=== PATIENT | female | born 1970 | race Caucasian/White ===

== ENCOUNTER 2018-09-01 09:15 | Inpatient (IN) | payer BC ==
[2018-10-06] MEDS ORDERED: Lidocaine 1%/Sod Bicarbonate in NS 8.4% 1 ML Syringe IDERM PRN (00:01)
[2018-10-06] MEDS ORDERED: Lactated Ringers 1,000 ML IV SCH (00:01)
[2018-10-06] MEDS ORDERED: Sodium Chloride 0.9% 10 ML Syringe FLUSH PRN (00:01)
[2018-10-06] MEDS ORDERED: Pregabalin 25 MG Cap PO SCH (06:00)
[2018-10-06] MEDS ORDERED: Acetaminophen 325 MG Tab PO SCH (06:00)
[2018-10-06] MEDS ORDERED: oxyCODONE ER 10 MG TAB.ER PO SCH (06:00)
--- NOTE | 2018-10-06 08:42 | PCM.PREANE ---
Preanesthetic Assessment - Procedure Proposed Procedure: left hip replacement - Anesthesia/Transfusion/Family Hx Anesthesia History: Prior Anesthesia Reaction Other Type of Anesthesia Reaction Comment: "stiffness" Family History of Anesthesia Reaction: No Transfusion History: No Prior Transfusion(s) - Review of Systems General: No Symptoms Pulmonary: No Symptoms Cardiovascular: No Symptoms Gastrointestinal: No Symptoms Neurological: No Symptoms Other: Reports: Depression, Anxiety - Physical Assessment NPO Status Date: 10/05/18 NPO Status Time: 22:00 (sip withpills this am) Pulse: 72 O2 Sat by Pulse Oximetry: 97 Respiratory Rate: 16 Blood Pressure: 108/81 Temperature: 97.1 F Height: 5 ft 4 in Weight: 88 kg ASA Class: 2 Mental Status: Alert & Oriented x3 Airway Class: Mallampati = 1 Dentition: Reports: Normal Dentition Thyro-Mental Finger Breadths: 3 Mouth Opening Finger Breadths: 3 ROM/Head Extension: Full Lungs: Clear to Auscultation, Normal Respiratory Effort Cardiovascular: Regular Rate, Regular Rhythm - Lab Values: Laboratory Last Values MRSA (PCR) Negative 09/19/18 10:56 - Allergies Allergies/Adverse Reactions: Allergies Allergy/AdvReac Type Severity Reaction Status Date / Time cat dander Allergy Itching Verified 10/03/18 14:52 - Blood Blood Available: No - Acknowledgements Anesthesia Type Planned: Spinal Pt an Appropriate Candidate for the Planned Anesthesia: Yes Alternatives and Risks of Anesthesia Discussed w Pt/Guardian: Yes Pt/Guardian Understands and Agrees with Anesthesia Plan: Yes PreAnesthesia Questionnaire HEENT History: Reports: Allergic Rhinitis, Impaired Vision Cardiovascular History: Reports: Heart Murmur Respiratory History: Reports: None Gastrointestinal History: Reports: None Genitourinary History: Reports: Urinary Incontinence, Other (See Below) Other Genitourinary History: frequent urination, genintal herpes, cervix polyp 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: , 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 Musculoskeletal History: Reports: RA, Other (See Below) Other Musculoskeletal History: chronic left hip pain, myalgia, polyarthritis Neurological History: Reports: None Psychiatric History: Reports: Anxiety, Depression Endocrine/Metabolic History: Reports: Hypothyroidism, Obesity/BMI 30+, Other ( See Below) Other Endocrine/Metabolic History: goiter Hematologic History: Reports: Anemia Immunologic History: Reports: None Oncologic (Cancer) History: Reports: None Dermatologic History: Reports: Other (See Below) Other Dermatologic History: skin tags - Past Surgical History Head Surgeries/Procedures: Reports: None HEENT Surgical History: Reports: Oral Surgery Cardiovascular Surgical History: Reports: None Respiratory Surgical History: Reports: None GI Surgical History: Reports: Appendectomy Female Surgical History: Reports: Hysterectomy Neurological Surgical History: Reports: None Musculoskeletal Surgical History: Reports: None Oncologic Surgical History: Reports: None - SUBSTANCE USE Smoking Status *Q: Never Smoker Tobacco Use Within Last Twelve Months: No Second Hand Smoke Exposure: No Days Per Week of Alcohol Use: 1 (once a month) Recreational Drug Use History: No - HOME MEDS Home Medications: Home Meds Acetaminophen [Tylenol Extra Strength] 1,000 mg PO BID 10/03/18 [History] Cholecalciferol (Vitamin D3) [Vitamin D3] 5,000 unit PO DAILY 10/03/18 [History] Hydroxychloroquine [Plaquenil] 200 mg PO BID 10/03/18 [History] Meloxicam 15 mg PO DAILY 10/03/18 [History] Multivitamin [Zoo Chews] 1 tab PO DAILY 10/03/18 [History] Turmeric Root Extract [Turmeric Curcumin] 1,000 mg PO DAILY 10/03/18 [History] Venlafaxine HCl [Venlafaxine ER] 75 mg PO DAILY 10/03/18 [History] Zinc Gluconate [Zinc] 50 mg PO DAILY 10/03/18 [History] valACYclovir [Valtrex] 1 gm PO ASDIRECTED PRN 10/03/18 [History] - CURRENT (IN HOUSE) MEDS Current Meds: Current Medications Acetaminophen (Tylenol) 975 mg PO ONETIME GUS Stop: 10/06/18 14:00 Last Admin: 10/06/18 08:20 Dose: 975 mg Aspirin (Ecotrin) 325 mg PO BID GUS Bisacodyl (Dulcolax) 5 mg PO DAILY PRN PRN Reason: Constipation Morphine Sulfate 8 mg/Epinephrine HCl 0.3 mg/Cefuroxime Sodium 750 mg/Ketorolac Tromethamine 30 mg/Sodium Chloride 27.9 ml 0 mg .XX ONETIME ONE Stop: 10/06/18 11:21 Cyclobenzaprine HCl (Flexeril) 10 mg PO TID PRN PRN Reason: Spasms Docusate Sodium (Colace) 100 mg PO BID GUS Famotidine (Pepcid) 20 mg PO Q12H [facility] Lactated Ringer's (Ringers, Lactated) 1,000 mls @ 125 mls/hr IV ASDIRECTED [facility] Stop: 10/06/18 23:00 Cefazolin Sodium/Dextrose 2 gm (/ Premix) 50 mls @ 100 mls/hr IV Q8H [facility] Stop: 10/06/18 23:29 Ketorolac Tromethamine (Toradol) 15 mg IVPUSH Q6H PRN PRN Reason: Pain Lidocaine/Sodium Bicarbonate (Buffered Lidocaine 1% In Ns 8.4%) 0.25 ml IDERM ONETIME PRN PRN Reason: Prior to IV Start Stop: 10/06/18 18:00 Magnesium Hydroxide (Milk Of Magnesia) 30 ml PO BID PRN PRN Reason: Constipation Morphine Sulfate (Morphine) 2 mg IVPUSH Q2H PRN PRN Reason: Breakthrough Pain Naloxone HCl (Narcan) 0.1 mg IVPUSH Q5M PRN PRN Reason: Oversedation Ondansetron HCl (Zofran) 4 mg IVPUSH Q6H PRN PRN Reason: Nausea/Vomiting Oxycodone HCl (Oxycontin) 10 mg PO ONETIME [facility] Stop: 10/06/18 14:00 Last Admin: 10/06/18 08:19 Dose: 10 mg Oxycodone/Acetaminophen (Percocet 325-5 Mg) 1 - 2 tab PO Q4H PRN PRN Reason: Pain Pregabalin (Lyrica) 50 mg PO ONETIME [facility] Stop: 10/06/18 14:00 Last Admin: 10/06/18 08:19 Dose: 50 mg Senna (Senna) 8.6 mg PO BID PRN PRN Reason: Constipation Sodium Chloride (Saline Flush) 10 ml FLUSH ASDIRECTED PRN PRN Reason: Keep Vein Open Stop: 10/06/18 18:00
[2018-10-06] MEDS ORDERED: Propofol 200 MG/20 ML SDV ONE (08:56)
[2018-10-06] MEDS ORDERED: fentaNYL 100 MCG/2 ML SDV ONE (08:57)
[2018-10-06] MEDS ORDERED: Midazolam 1 MG/ML 2 ML SDV ONE (08:57)
[2018-10-06] MEDS ORDERED: Lactated Ringers 1,000 ML ONE ×2 (08:59→11:38)
[2018-10-06] MEDS ORDERED: Morphine PF 10 MG/10 ML SDV ONE (09:02)
[2018-10-06] MEDS ORDERED: ceFAZolin 1 GM Vial ONE (10:20)
[2018-10-06] MEDS ORDERED: ePHEDrine/Normal Saline 25 MG/5 ML Syringe ONE (10:48)
[2018-10-06] MEDS ORDERED: fentaNYL 100 MCG/2 ML SDV IVPUSH PRN (10:59)
[2018-10-06] MEDS ORDERED: Meperidine 50 MG/ML Vial IVPUSH PRN (10:59)
[2018-10-06] MEDS ORDERED: Ondansetron 4 MG/2 ML SDV IVPUSH PRN (10:59)
[2018-10-06] MEDS ORDERED: diphenhydrAMINE 50 MG/ML SDV IVPUSH PRN (10:59)
[2018-10-06] MEDS: Iodine/Sodium Iodide 2% Tincture 30 ML Bottle ONE ×2 (11:42→11:49)
[2018-10-06] MEDS: ceFAZolin 1 GM Vial ONE ×2 (11:43→11:51)
[2018-10-06] MEDS: Vancomycin 1 GM SDV ONE ×2 (11:44→11:58)
[2018-10-06] MEDS: Morphine 8 MG, EPINEPHrine 0.3 MG, Cefuroxime 750 MG, Ketorolac 30 MG, Sodium Chloride ... ONE ×10 (11:44→11:56)
[2018-10-06] MEDS: Bupivacaine 0.25% 30 ML SDV ONE ×2 (11:44→11:57)
--- NOTE | 2018-10-06 12:36 | PCM.POSTAN ---
POST ANESTHESIA ASSESSMENT - MENTAL STATUS Mental Status: Alert, Oriented - VITAL SIGNS Pulse Rate: 75 SaO2: 100 Resp Rate: 8 Blood Pressure: 99/61 Temperature: 98.4 F - RESPIRATORY Respiratory Status: Respiratory Rate WNL, Airway Patent, O2 Saturation Stable, Supplemental Oxygen - CARDIOVASCULAR CV Status: Pulse Rate WNL, Blood Pressure Stable - GASTROINTESTINAL GI Status: No Symptoms - PAIN Pain Score: 0 - POST OP HYDRATION Hydration Status: Adequate & Stable
[2018-10-06] MEDS ORDERED: Morphine 2 MG/ML Syringe IVPUSH PRN (13:00)
[2018-10-06] MEDS ORDERED: Cyclobenzaprine 10 MG Tab PO PRN (13:00)
[2018-10-06] MEDS ORDERED: Magnesium Hydroxide 400 MG/5 ML Susp 30 ML Cup PO PRN (13:00)
[2018-10-06] MEDS ORDERED: Sennosides 8.6 MG Tab PO PRN (13:00)
[2018-10-06] MEDS ORDERED: Bisacodyl 5 MG Tab PO PRN (13:00)
[2018-10-06] MEDS ORDERED: Naloxone 0.4 MG/ML SDV IVPUSH PRN (13:00)
[2018-10-06] MEDS: Acetaminophen/oxyCODONE 325-5 MG Tab PO PRN ×3 (13:34→23:03)
--- NOTE | 2018-10-06 13:42 | CR ---
Pelvis and left hip: AP view of pelvis is obtained as well as lateral view of the left hip. Comparison: Prior MRI left hip arthrogram study of 02/25/17 Left hip prosthesis is seen. Components are aligned. Underlying bony structures are intact. Severe degenerative joint space narrowing is seen within the right hip. Disc space narrowing is noted within the lower lumbar spine. No subluxation or fracture is seen. Impression: 1. Satisfactory appearance of recently placed left hip prosthesis. 2. Other degenerative change as noted above. Diagnostic code #3
[2018-10-06] MEDS ORDERED: valACYclovir 1,000 MG Tab PO PRN (14:04)
[2018-10-06] MEDS ORDERED: Scopolamine 1.5 MG Transdermal Patch TRDERM PRN (14:44)
[2018-10-06] MEDS: ceFAZolin 2 GM in Premix Bag 1 BAG IV SCH (18:09)
--- NOTE | 2018-10-06 18:56 | PCM.CONS ---
H&P History of Present Illness - General Date of Service: 10/06/18 Admit Problem/Dx: Admission Diagnosis/Problem Admission Diagnosis/Problem Osteoarthritis of hip Source of Information: Patient, Provider History Limitations: Reports: No Limitations - History of Present Illness Initial Comments - Free Text/Narative: Beatriz is a 48 yo female patient of Dr. Sparks who is post-operative day 0 of L SITA. Hospital medicine was consulted for post-operative medical care. At this time she is stable. Pain is controlled. She is having some nausea and vomiting. Antiemetics have been given with relief. She denies any chest pain, shortness of breath, or palpitations. She carries a history of: Anxiety, Depression, Herpes, Obesity, OA, RA, TAY, h/o murmur, hypothyroidism, PCOS, Anemia. She has never smoked. She is a full code. Her PCP is YOLANDA Davies. Left Hip Pain Score (Numeric/FACES): 7 - Related Data Allergies/Adverse Reactions: Allergies Allergy/AdvReac Type Severity Reaction Status Date / Time cat dander Allergy Itching Verified 10/06/18 14:03 Home Medications: Home Meds Cholecalciferol (Vitamin D3) [Vitamin D3] 5,000 unit PO DAILY 10/03/18 [History] Hydroxychloroquine [Plaquenil] 200 mg PO BID 10/03/18 [History] Meloxicam 15 mg PO DAILY 10/03/18 [History] Multivitamin [Zoo Chews] 1 tab PO DAILY 10/03/18 [History] Venlafaxine HCl [Venlafaxine ER] 75 mg PO DAILY 10/03/18 [History] valACYclovir [Valtrex] 1 gm PO ASDIRECTED PRN 10/03/18 [History] Acetaminophen [Tylenol Extra Strength] 1,000 mg PO BID PRN #1 10/06/18 [Rx] Acetaminophen/oxyCODONE [Percocet 325-5 MG] 1 - 2 tab PO Q6H PRN #60 tablet [Rx] Bisacodyl [Dulcolax] 5 mg PO DAILY PRN tablet 10/06/18 [Rx] Cyclobenzaprine [Flexeril] 10 mg PO TID PRN #40 tablet 10/06/18 [Rx] Docusate Sodium [Colace] 100 mg PO BID cap 10/06/18 [Rx] Famotidine [Pepcid] 20 mg PO Q12H tablet 10/06/18 [Rx] Magnesium Hydroxide [Milk of Magnesia] 30 ml PO BID PRN cup 10/06/18 [Rx] Rivaroxaban [Xarelto] 10 mg PO DAILY #40 10/06/18 [Rx] Scopolamine [Transderm-Scop] 1.5 mg TRDERM Q72H PRN patch 10/06/18 [Rx] Sennosides [Senna] 8.6 mg PO BID PRN tablet 10/06/18 [Rx] Past Medical History HEENT History: Reports: Allergic Rhinitis, Impaired Vision Cardiovascular History: Reports: Heart Murmur Respiratory History: Reports: None Gastrointestinal History: Reports: None Genitourinary History: Reports: Urinary Incontinence, Other (See Below) Other Genitourinary History: frequent urination, genintal herpes, cervix polyp 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: , 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 Musculoskeletal History: Reports: RA, Other (See Below) Other Musculoskeletal History: chronic left hip pain, fibromyalgia, polyarthritis Neurological History: Reports: None Psychiatric History: Reports: Anxiety, Depression Endocrine/Metabolic History: Reports: Hypothyroidism, Obesity/BMI 30+, Other ( See Below) Other Endocrine/Metabolic History: goiter Hematologic History: Reports: Anemia Immunologic History: Reports: None Oncologic (Cancer) History: Reports: None Dermatologic History: Reports: Other (See Below) Other Dermatologic History: skin tags - Infectious Disease History Other Infectious Disease History: hx of encephalitis and [place], genital herpes - Past Surgical History Head Surgeries/Procedures: Reports: None HEENT Surgical History: Reports: Oral Surgery Cardiovascular Surgical History: Reports: None Respiratory Surgical History: Reports: None Other Respiratory Surgeries/Procedures: hx of obstructive sleep apnea GI Surgical History: Reports: Appendectomy Female Surgical History: Reports: Hysterectomy Other Endocrine Surgeries/Procedures: patient denies obesity and hyrothyroid Neurological Surgical History: Reports: None Musculoskeletal Surgical History: Reports: None Oncologic Surgical History: Reports: None Social & Family History - Tobacco Use Smoking Status *Q: Never Smoker Second Hand Smoke Exposure: No - Caffeine Use Caffeine Use: Reports: Coffee, Energy Drinks - Alcohol Use Days Per Week of Alcohol Use: 1 (once a month) - Recreational Drug Use Recreational Drug Use: No H&P Review of Systems - Review of Systems: Review Of Systems: See Below General: Reports: No Symptoms. Denies: Fever, Chills HEENT: Reports: No Symptoms Pulmonary: Reports: No Symptoms. Denies: Shortness of Breath, Cough Cardiovascular: Reports: No Symptoms. Denies: Chest Pain, Blood Pressure Problem Gastrointestinal: Reports: Nausea, Vomiting. Denies: Abdominal Pain, Diarrhea Genitourinary: Reports: No Symptoms Musculoskeletal: Reports: No Symptoms Skin: Reports: No Symptoms Psychiatric: Reports: No Symptoms Neurological: Reports: No Symptoms Hematologic/Lymphatic: Reports: No Symptoms Immunologic: Reports: No Symptoms Exam - Exam Exam: See Below - Vital Signs Vital Signs: Last Vital Signs Temp 97.9 F 10/06/18 17:29 Pulse 73 10/06/18 17:29 Resp 18 10/06/18 17:29 BP 115/66 10/06/18 17:29 Pulse Ox 100 10/06/18 17:29 Weight: 193 lb 14.4 oz - Exam Quality Assessment: Supplemental Oxygen (2L NC), DVT Prophylaxis General: Alert, Oriented, Cooperative, Mild Distress HEENT: Conjunctiva Clear, EACs Clear, EOMI, Hearing Intact, Mucosa Moist & [place] , Nares Patent, Normal Nasal Septum, Posterior Pharynx Clear, PERRLA Neck: Supple, Trachea Midline, 2 Lungs: Clear to Auscultation, Normal Respiratory Effort Cardiovascular: Regular Rate, Regular Rhythm GI/Abdominal Exam: Normal Bowel Sounds, Soft, Non-Tender, No Organomegaly, No Distention, No Abnormal Bruit, No Mass, Pelvis Stable (Female) Exam: Deferred Rectal (Female) Exam: Deferred Back Exam: Normal Inspection Extremities: Normal Inspection, Non-Tender, No Pedal Edema, Normal Capillary Refill, Limited Range of Motion (s/p L SITA) Peripheral Pulses: 2+: Posterior Tibial (L), Posterior Tibial (R), Dorsalis Pedis (L), Dorsalis Pedis (R) Skin: Warm, Dry, Intact, Other (bandage dry and intact) Neurological: Cranial Nerves Intact (grossly) Psychiatric: Alert, Normal Affect, Normal Mood - Patient Data Lab Results Last 24 hrs: Laboratory Results - last 24 hr 10/06/18 Range/Units 08:30 Blood Type A POSITIVE Gel Antibody Screen Negative Consult PN Assessment/Plan POD#: 0 Procedures: Procedures ANTINUCLEAR ANTIBODIES (10/11/16) ASSAY OF PREALBUMIN (09/23/18) ASSAY THYROID STIM HORMONE (10/18/17) C-REACTIVE PROTEIN (10/10/16) CCP ANTIBODY (10/11/16) COMPLETE CBC AUTOMATED (09/23/18) COMPREHEN METABOLIC PANEL (09/23/18) CULTURE SCREEN ONLY (12/13/15) DRAIN/INJ JOINT/BURSA W/O US (07/25/18) LIPID PANEL (10/18/17) MEDICAL NUTRITION INDIV IN (03/20/17) MRI JNT OF LWR EXTRE W/O DYE (02/25/17) PROTHROMBIN TIME (09/23/18) RBC SED RATE AUTOMATED (10/10/16) RHEUMATOID FACTOR TEST QUAL (10/11/16) ROUTINE VENIPUNCTURE (09/23/18) STREP A AG IA (12/13/15) THROMBOPLASTIN TIME PARTIAL (09/23/18) ULTRASOUND BREAST LIMITED (10/30/16) URINALYSIS AUTO W/O SCOPE (10/18/17) X-RAY EXAM CHEST 2 VIEWS (09/23/18) X-RAY EXAM HIP UNI 2-3 VIEWS (12/13/15) X-RAY EXAM L-S SPINE 2/3 VWS (12/13/15) X-RAY EXAM SACRUM TAILBONE (12/13/15) (1) S/P total hip arthroplasty SNOMED Code(s): 262882811673, 292136339237 Code(s): Z96.649 - PRESENCE OF UNSPECIFIED ARTIFICIAL HIP JOINT Priority: High Current Visit: Yes Qualifiers: Laterality: left Qualified Code(s): Z96.642 - Presence of left artificial hip joint Problem List Initiated/Reviewed/Updated: Yes Plan: I/P: Acute: S/P left total hip arthroplasty - post-operative day 0 -DVT prophylaxis and pain management per primary care team -PT/OT -IS/RT -Monitor oxygen saturation -Titrate oxygen as needed -Vital signs stable -Monitor labs -Hgb 13.8 -GFR >60 Osteoarthritis of hip -Pain management per primary care team Chronic: Anxiety Depression Herpes Obesity OA RA TAY h/o murmur hypothyroidism PCOS Anemia Plan: CM for discharge planning GI prophylaxis: Pepcid DVT/PE prophylaxis: Xaralto, MARÍA ELENA hose, SCDs Home medications as indicated Other orders as listed above Routine AM labs She is a full code. Thank you for allowing us to participate in the care of this patient!
[2018-10-06] MEDS: Ondansetron 4 MG/2 ML SDV IVPUSH PRN (19:05)
[2018-10-06] MEDS ORDERED: Venlafaxine 75 MG Cap.ER PO SCH (21:00)
[2018-10-06] MEDS ORDERED: Hydroxychloroquine 200 MG Tab PO SCH (21:00)
[2018-10-06] MEDS: Docusate Sodium 100 MG Cap PO SCH (21:14)
[2018-10-06] MEDS: Famotidine 20 MG Tab PO SCH (21:14)
--- NOTE | 2018-10-06 21:48 | PCM.OPNOTE ---
- General Post-Op/Procedure Note Date of Surgery/Procedure: 10/06/18 Operative Procedure(s): left total hip arthroplasty Pre Op Diagnosis: left hip osteoarthrosis Post-Op Diagnosis: Same Anesthesia Technique: Local, MAC, Spinal Primary Surgeon: Ye Sparks Anesthesia Provider: Maria Dolores Crane Federal Mediation Commissioner: Lyn Hogan Federal Mediation Commissioner: Bertha Navarro EBL in mLs: 400 Complications: None Condition: Good Free Text/Narrative:: Intake & Output 10/06/18 10/06/18 10/06/18 06:59 14:59 22:59 Intake Total 540 600 Output Total 450 250 Balance 90 350 size 52 cup size 2 stem size 42/28 mdm -2.7 components
[2018-10-06] MEDS: Ketorolac 15 MG/ML SDV IVPUSH PRN (23:05)
[2018-10-07] MEDS: ceFAZolin 2 GM in Premix Bag 1 BAG IV SCH ×2 (03:39→10:37)
[2018-10-07] MEDS: Ondansetron 4 MG/2 ML SDV IVPUSH PRN ×2 (04:27→10:37)
[2018-10-07] MEDS: Ketorolac 15 MG/ML SDV IVPUSH PRN (06:17)
[2018-10-07] MEDS: Acetaminophen/oxyCODONE 325-5 MG Tab PO PRN ×2 (06:18→12:57)
--- NOTE | 2018-10-07 06:21 | PCM.CONSN ---
- General Info Date of Service: 10/07/18 Admission Dx/Problem (Free Text): Admission Diagnosis/Problem Admission Diagnosis/Problem Osteoarthritis of hip Functional Status: Reports: Pain Controlled, Tolerating Diet, Ambulating, Urinating, Incentive Spirometry. Denies: New Symptoms - Review of Systems General: Reports: No Symptoms. Denies: Fever, Weakness, Fatigue, Malaise, Chills HEENT: Reports: No Symptoms. Denies: Headaches, Sore Throat Pulmonary: Reports: No Symptoms. Denies: Shortness of Breath, Pleuritic Chest Pain, Cough, Sputum, Wheezing Cardiovascular: Reports: No Symptoms. Denies: Chest Pain, Palpitations, Dyspnea on Exertion, Edema, Lightheadedness Gastrointestinal: Reports: No Symptoms. Denies: Abdominal Pain, Constipation, Diarrhea, Nausea, Vomiting Genitourinary: Reports: No Symptoms. Denies: Pain Musculoskeletal: Reports: Leg Pain Skin: Reports: No Symptoms. Denies: Cyanosis Neurological: Reports: No Symptoms. Denies: Confusion, Headache, Seizure, Trouble Speaking, Weakness, Change in Speech Psychiatric: Reports: No Symptoms - Patient Data Vitals - Most Recent: Last Vital Signs Temp 98.2 F 10/07/18 03:29 Pulse 74 10/07/18 03:29 Resp 16 10/07/18 03:29 BP 102/78 10/07/18 03:29 Pulse Ox 99 10/07/18 03:29 Weight - Most Recent: 197 lb 6.4 oz I&O - Last 24 Hours: Intake & Output 10/06/18 10/06/18 10/07/18 14:59 22:59 06:59 Intake Total 540 600 950 Output Total 584 699 8975 Balance 90 350 -750 Lab Results Last 24 Hours: Laboratory Results - last 24 hr 10/06/18 Range/Units 08:30 Blood Type A POSITIVE Gel Antibody Screen Negative Med Orders - Current: Current Medications Bisacodyl (Dulcolax) 5 mg PO DAILY PRN PRN Reason: Constipation Cholecalciferol (Vitamin D3) 5,000 unit PO DAILY [facility] Cyclobenzaprine HCl (Flexeril) 10 mg PO TID PRN PRN Reason: Spasms Docusate Sodium (Colace) 100 mg PO BID [facility] Last Admin: 10/06/18 21:14 Dose: 100 mg Famotidine (Pepcid) 20 mg PO Q12H [facility] Last Admin: 10/06/18 21:14 Dose: 20 mg Cefazolin Sodium/Dextrose 2 gm (/ Premix) 50 mls @ 100 mls/hr IV Q8H [facility] Stop: 10/07/18 11:29 Last Admin: 10/07/18 03:39 Dose: 100 mls/hr Ketorolac Tromethamine (Toradol) 15 mg IVPUSH Q6H PRN PRN Reason: Pain Last Admin: 10/07/18 06:17 Dose: 15 mg Magnesium Hydroxide (Milk Of Magnesia) 30 ml PO BID PRN PRN Reason: Constipation Morphine Sulfate (Morphine) 2 mg IVPUSH Q2H PRN PRN Reason: Breakthrough Pain Multivitamins (Thera) 1 each PO DAILY [facility] Naloxone HCl (Narcan) 0.1 mg IVPUSH Q5M PRN PRN Reason: Oversedation Ondansetron HCl (Zofran) 4 mg IVPUSH Q6H PRN PRN Reason: Nausea/Vomiting Last Admin: 10/07/18 04:27 Dose: 4 mg Oxycodone/Acetaminophen (Percocet 325-5 Mg) 1 - 2 tab PO Q4H PRN PRN Reason: Pain Last Admin: 10/07/18 06:18 Dose: 2 tab Rivaroxaban (Xarelto) 10 mg PO DAILY [facility] Scopolamine (Transderm-Scop) 1.5 mg TRDERM Q72H PRN PRN Reason: Nausea Last Admin: 10/06/18 15:04 Dose: 1.5 mg Senna (Senna) 8.6 mg PO BID PRN PRN Reason: Constipation Venlafaxine HCl (Effexor Xr) 75 mg PO BEDTIME [facility] Last Admin: 10/06/18 21:13 Dose: 75 mg Discontinued Medications Acetaminophen (Tylenol) 975 mg PO ONETIME [facility] Stop: 10/06/18 14:00 Last Admin: 10/06/18 08:20 Dose: 975 mg Aspirin (Ecotrin) 325 mg PO BID [facility] Bupivacaine HCl (Marcaine 0.25%) Confirm Administered Dose 30 ml .ROUTE .STK- MED ONE Stop: 10/06/18 10:21 Last Admin: 10/06/18 11:57 Dose: 30 ml Cefazolin Sodium (Ancef) Confirm Administered Dose 2 gm .ROUTE .STK-MED ONE Stop: 10/06/18 08:59 Last Admin: 10/06/18 11:51 Dose: 2 gm Cefazolin Sodium (Ancef) Confirm Administered Dose 2 gm .ROUTE .STK-MED ONE Stop: 10/06/18 10:21 Morphine Sulfate 8 mg/Epinephrine HCl 0.3 mg/Cefuroxime Sodium 750 mg/Ketorolac Tromethamine 30 mg/Sodium Chloride 27.9 ml 0 mg .XX ONETIME ONE Stop: 10/06/18 11:21 Last Admin: 10/06/18 11:56 Dose: 788.3 mg Diphenhydramine HCl (Benadryl) 25 mg IVPUSH Q6H PRN PRN Reason: pruritis Stop: 10/06/18 15:00 Ephedrine Sulfate (Ephedrine In Ns) Confirm Administered Dose 25 mg .ROUTE .STK- MED ONE Stop: 10/06/18 10:49 Fentanyl (Sublimaze) Confirm Administered Dose 100 mcg .ROUTE .STK-MED ONE Stop: 10/06/18 08:58 Fentanyl (Sublimaze) 50 mcg IVPUSH Q5M PRN PRN Reason: Pain Stop: 10/06/18 14:00 Hydroxychloroquine Sulfate (Plaquenil) 200 mg PO BID [facility] Lactated Ringer's (Ringers, Lactated) 1,000 mls @ 125 mls/hr IV ASDIRECTED [facility] Stop: 10/06/18 23:00 Last Admin: 10/06/18 08:30 Dose: 125 mls/hr Lactated Ringer's (Ringers, Lactated) Confirm Administered Dose 1,000 mls @ as directed .ROUTE .STK-MED ONE Stop: 10/06/18 09:00 Lactated Ringer's (Ringers, Lactated) Confirm Administered Dose 1,000 mls @ as directed .ROUTE .STK-MED ONE Stop: 10/06/18 11:39 Iodine (Iodine 2% Mild Tincture) Confirm Administered Dose 30 ml .ROUTE .STK- MED ONE Stop: 10/06/18 10:21 Last Admin: 10/06/18 11:49 Dose: 18 ml Lidocaine/Sodium Bicarbonate (Buffered Lidocaine 1% In Ns 8.4%) 0.25 ml IDERM ONETIME PRN PRN Reason: Prior to IV Start Stop: 10/06/18 18:00 Last Admin: 10/06/18 08:30 Dose: 0.25 ml Meperidine HCl (Meperidine) 12.5 mg IVPUSH ONETIME PRN PRN Reason: Shivering Stop: 10/06/18 14:00 Midazolam HCl (Versed 1 Mg/Ml) Confirm Administered Dose 2 mg .ROUTE .STK-MED ONE Stop: 10/06/18 08:58 Morphine Sulfate (Duramorph Pf) Confirm Administered Dose 10 mg .ROUTE .STK-MED ONE Stop: 10/06/18 09:03 Ondansetron HCl (Zofran) 4 mg IVPUSH ONETIME PRN PRN Reason: Nausea/Vomiting Stop: 10/06/18 16:00 Oxycodone HCl (Oxycontin) 10 mg PO ONETIME [facility] Stop: 10/06/18 14:00 Last Admin: 10/06/18 08:19 Dose: 10 mg Pregabalin (Lyrica) 50 mg PO ONETIME [facility] Stop: 10/06/18 14:00 Last Admin: 10/06/18 08:19 Dose: 50 mg Propofol (Diprivan 20 Ml) Confirm Administered Dose 600 mg .ROUTE .STK-MED ONE Stop: 10/06/18 08:57 Sodium Chloride (Saline Flush) 10 ml FLUSH ASDIRECTED PRN PRN Reason: Keep Vein Open Stop: 10/06/18 18:00 Tranexamic Acid (Cyklokapron) Confirm Administered Dose 1,000 mg .ROUTE .STK- MED ONE Stop: 10/06/18 10:20 Last Admin: 10/06/18 11:58 Dose: 1,000 mg Valacyclovir HCl (Valtrex) 1,000 mg PO ASDIRECTED PRN PRN Reason: as directed Vancomycin HCl (Vancomycin) Confirm Administered Dose 1 gm .ROUTE .STK-MED ONE Stop: 10/06/18 10:21 Last Admin: 10/06/18 11:58 Dose: 1 gm - Exam Quality Assessment: DVT Prophylaxis General: Alert, Oriented, Cooperative, No Acute Distress HEENT: Pupils Equal, Pupils Reactive, EOMI, Mucous Membr. Moist/[place] Neck: Supple, Trachea Midline, No JVD Lungs: Clear to Auscultation, Normal Respiratory Effort Cardiovascular: Regular Rate, Regular Rhythm GI/Abdominal Exam: Normal Bowel Sounds, Soft, Non-Tender, No Distention, No Abnormal Bruit (Female) Exam: Deferred Back Exam: Normal Inspection, Full Range of Motion Extremities: No Pedal Edema, Normal Capillary Refill, Leg Pain, Limited Range of Motion, Other (Bandage in place on left leg. Cooling pack in place ) Peripheral Pulses: 2+: Radial (L), Radial (R), Dorsalis Pedis (L), Dorsalis Pedis (R) Skin: Warm, Dry, Intact Wound/Incisions: Dressing Dry and Intact, No Drainage Neurological: No New Focal Deficit Psy/Mental Status: Alert, Normal Affect, Normal Mood Consult PN Assessment/Plan POD#: 1 Procedures: Procedures ANTINUCLEAR ANTIBODIES (10/11/16) ASSAY OF PREALBUMIN (09/23/18) ASSAY THYROID STIM HORMONE (10/18/17) C-REACTIVE PROTEIN (10/10/16) CCP ANTIBODY (10/11/16) COMPLETE CBC AUTOMATED (09/23/18) COMPREHEN METABOLIC PANEL (09/23/18) CULTURE SCREEN ONLY (12/13/15) DRAIN/INJ JOINT/BURSA W/O US (07/25/18) LIPID PANEL (10/18/17) MEDICAL NUTRITION INDIV IN (03/20/17) MRI JNT OF LWR EXTRE W/O DYE (02/25/17) PROTHROMBIN TIME (09/23/18) RBC SED RATE AUTOMATED (10/10/16) RHEUMATOID FACTOR TEST QUAL (10/11/16) ROUTINE VENIPUNCTURE (09/23/18) STREP A AG IA (12/13/15) THROMBOPLASTIN TIME PARTIAL (09/23/18) ULTRASOUND BREAST LIMITED (10/30/16) URINALYSIS AUTO W/O SCOPE (10/18/17) X-RAY EXAM CHEST 2 VIEWS (09/23/18) X-RAY EXAM HIP UNI 2-3 VIEWS (12/13/15) X-RAY EXAM L-S SPINE 2/3 VWS (12/13/15) X-RAY EXAM SACRUM TAILBONE (12/13/15) (1) S/P total hip arthroplasty SNOMED Code(s): 816709430016, 918549050261 Code(s): Z96.649 - PRESENCE OF UNSPECIFIED ARTIFICIAL HIP JOINT Priority: High Current Visit: Yes Qualifiers: Laterality: left Qualified Code(s): Z96.642 - Presence of left artificial hip joint Problem List Initiated/Reviewed/Updated: Yes My Orders Last 24 Hours: My Active Orders 10/06/18 14:44 Scopolamine [Transderm-Scop] 1.5 mg TRDERM Q72H PRN Plan: I/P: Acute: S/P left total hip arthroplasty - post-operative day 1 -DVT prophylaxis and pain management per primary care team -PT/OT -IS/RT -Monitor oxygen saturation -Titrate oxygen as needed -Vital signs stable -Monitor labs -Hgb 13.8; Now10.4 -GFR >60; Now >60 Osteoarthritis of hip -Pain management per primary care team Post-operative hypotension -BP 84/50 -Symptomatic with dizziness, weakness, difficulty ambulating -500mL fluid bolus given -BP 101/58 -Symptoms responded to fluid challenge and she is doing well -Encouraged hydration at discharge Chronic: Anxiety Depression Herpes Obesity OA RA TAY h/o murmur hypothyroidism PCOS Anemia Plan: CM for discharge planning GI prophylaxis: Pepcid DVT/PE prophylaxis: MARÍA ELENA Pinon, SCDs Home medications as indicated Other orders as listed above Routine AM labs She is a full code. Overall from a hospitalist standpoint Beatriz is doing well. Nursing reported symptomatic hypotension this morning she was given a 500 mL fluid bolus with excellent results. Oral hydration was encouraged. She does state that she normally runs with a systolic pressure in the low 100s to upper 90s. She has since been working with PT and OT without any difficulty. She has urinated and is off oxygen. She has no concerns. No nursing concerns. Pain is controlled. She will be cleared for discharge pending primary team and PT/OT agreement. Thank you for allowing us to participate in the care of this patient!
--- NOTE | 2018-10-07 08:13 | PCM.SURGPN ---
- General Info Date of Service: 10/07/18 POD#: 1 Functional Status: Reports: Pain Controlled, Tolerating Diet, Ambulating, Urinating, Incentive Spirometry, Other (The pt states her pain is controlled.) - Patient Data Vitals - Most Recent: Last Vital Signs Temp 98.2 F 10/07/18 03:29 Pulse 74 10/07/18 03:29 Resp 16 10/07/18 03:29 BP 102/78 10/07/18 03:29 Pulse Ox 99 10/07/18 03:29 Weight - Most Recent: 197 lb 6.4 oz I&O - Last 24 Hours: Intake & Output 10/06/18 10/07/18 10/07/18 22:59 06:59 14:59 Intake Total 600 950 Output Total 250 1700 Balance 350 -750 Lab Results Last 24 Hrs: Laboratory Results - last 24 hr 10/06/18 10/07/18 10/07/18 Range/Units 08:30 06:30 06:30 WBC 7.56 (3.98-10.04) K/mm3 RBC 3.46 L (3.98-5.22) M/mm3 Hgb 10.4 L (11.2-15.7) gm/L Hct 32.2 L (34.1-44.9) % MCV 93.1 (79.4-94.8) fl MCH 30.1 (25.6-32.2) pg MCHC 32.3 (32.2-35.5) g/dl RDW Std Deviation 40.1 (36.4-46.3) fL Plt Count 218 (182-369) K/mm3 MPV 8.9 L (9.4-12.3) fl Sodium 138 (136-145) mEq/L Potassium 4.1 (3.5-5.1) mEq/L Chloride 102 (98-107) mEq/L Carbon Dioxide 30 (21-32) mEq/L Anion Gap 10.1 (5-15) BUN 17 (7-18) mg/dL Creatinine 0.7 (0.55-1.02) mg/dL Est Cr Clr Drug Dosing 86.72 mL/min Estimated GFR (MDRD) > 60 (>60) mL/min BUN/Creatinine Ratio 24.3 H (14-18) Glucose 96 (74-106) mg/dL Calcium 8.2 L (8.5-10.1) mg/dL Total Bilirubin 0.4 (0.2-1.0) mg/dL AST 31 (15-37) U/L ALT 27 (14-59) U/L Alkaline Phosphatase 51 (46-116) U/L Total Protein 6.1 L (6.4-8.2) g/dl Albumin 2.9 L (3.4-5.0) g/dl Globulin 3.2 gm/dL Albumin/Globulin Ratio 0.9 L (1-2) Blood Type A POSITIVE Gel Antibody Screen Negative Med Orders - Current: Current Medications Bisacodyl (Dulcolax) 5 mg PO DAILY PRN PRN Reason: Constipation Cholecalciferol (Vitamin D3) 5,000 unit PO DAILY [facility] Cyclobenzaprine HCl (Flexeril) 10 mg PO TID PRN PRN Reason: Spasms Docusate Sodium (Colace) 100 mg PO BID [facility] Last Admin: 10/06/18 21:14 Dose: 100 mg Famotidine (Pepcid) 20 mg PO Q12H [facility] Last Admin: 10/06/18 21:14 Dose: 20 mg Cefazolin Sodium/Dextrose 2 gm (/ Premix) 50 mls @ 100 mls/hr IV Q8H [facility] Stop: 10/07/18 11:29 Last Admin: 10/07/18 03:39 Dose: 100 mls/hr Ketorolac Tromethamine (Toradol) 15 mg IVPUSH Q6H PRN PRN Reason: Pain Last Admin: 10/07/18 06:17 Dose: 15 mg Magnesium Hydroxide (Milk Of Magnesia) 30 ml PO BID PRN PRN Reason: Constipation Morphine Sulfate (Morphine) 2 mg IVPUSH Q2H PRN PRN Reason: Breakthrough Pain Multivitamins (Thera) 1 each PO DAILY [facility] Naloxone HCl (Narcan) 0.1 mg IVPUSH Q5M PRN PRN Reason: Oversedation Ondansetron HCl (Zofran) 4 mg IVPUSH Q6H PRN PRN Reason: Nausea/Vomiting Last Admin: 10/07/18 04:27 Dose: 4 mg Oxycodone/Acetaminophen (Percocet 325-5 Mg) 1 - 2 tab PO Q4H PRN PRN Reason: Pain Last Admin: 10/07/18 06:18 Dose: 2 tab Rivaroxaban (Xarelto) 10 mg PO DAILY [facility] Scopolamine (Transderm-Scop) 1.5 mg TRDERM Q72H PRN PRN Reason: Nausea Last Admin: 10/06/18 15:04 Dose: 1.5 mg Senna (Senna) 8.6 mg PO BID PRN PRN Reason: Constipation Venlafaxine HCl (Effexor Xr) 75 mg PO BEDTIME [facility] Last Admin: 10/06/18 21:13 Dose: 75 mg Discontinued Medications Acetaminophen (Tylenol) 975 mg PO ONETIME [facility] Stop: 10/06/18 14:00 Last Admin: 10/06/18 08:20 Dose: 975 mg Aspirin (Ecotrin) 325 mg PO BID [facility] Bupivacaine HCl (Marcaine 0.25%) Confirm Administered Dose 30 ml .ROUTE .STK- MED ONE Stop: 10/06/18 10:21 Last Admin: 10/06/18 11:57 Dose: 30 ml Cefazolin Sodium (Ancef) Confirm Administered Dose 2 gm .ROUTE .STK-MED ONE Stop: 10/06/18 08:59 Last Admin: 10/06/18 11:51 Dose: 2 gm Cefazolin Sodium (Ancef) Confirm Administered Dose 2 gm .ROUTE .STK-MED ONE Stop: 10/06/18 10:21 Morphine Sulfate 8 mg/Epinephrine HCl 0.3 mg/Cefuroxime Sodium 750 mg/Ketorolac Tromethamine 30 mg/Sodium Chloride 27.9 ml 0 mg .XX ONETIME ONE Stop: 10/06/18 11:21 Last Admin: 10/06/18 11:56 Dose: 788.3 mg Diphenhydramine HCl (Benadryl) 25 mg IVPUSH Q6H PRN PRN Reason: pruritis Stop: 10/06/18 15:00 Ephedrine Sulfate (Ephedrine In Ns) Confirm Administered Dose 25 mg .ROUTE .STK- MED ONE Stop: 10/06/18 10:49 Fentanyl (Sublimaze) Confirm Administered Dose 100 mcg .ROUTE .STK-MED ONE Stop: 10/06/18 08:58 Fentanyl (Sublimaze) 50 mcg IVPUSH Q5M PRN PRN Reason: Pain Stop: 10/06/18 14:00 Hydroxychloroquine Sulfate (Plaquenil) 200 mg PO BID [facility] Lactated Ringer's (Ringers, Lactated) 1,000 mls @ 125 mls/hr IV ASDIRECTED [facility] Stop: 10/06/18 23:00 Last Admin: 10/06/18 08:30 Dose: 125 mls/hr Lactated Ringer's (Ringers, Lactated) Confirm Administered Dose 1,000 mls @ as directed .ROUTE .STK-MED ONE Stop: 10/06/18 09:00 Lactated Ringer's (Ringers, Lactated) Confirm Administered Dose 1,000 mls @ as directed .ROUTE .STK-MED ONE Stop: 10/06/18 11:39 Iodine (Iodine 2% Mild Tincture) Confirm Administered Dose 30 ml .ROUTE .ST- MED ONE Stop: 10/06/18 10:21 Last Admin: 10/06/18 11:49 Dose: 18 ml Lidocaine/Sodium Bicarbonate (Buffered Lidocaine 1% In Ns 8.4%) 0.25 ml IDERM ONETIME PRN PRN Reason: Prior to IV Start Stop: 10/06/18 18:00 Last Admin: 10/06/18 08:30 Dose: 0.25 ml Meperidine HCl (Meperidine) 12.5 mg IVPUSH ONETIME PRN PRN Reason: Shivering Stop: 10/06/18 14:00 Midazolam HCl (Versed 1 Mg/Ml) Confirm Administered Dose 2 mg .ROUTE .STK-MED ONE Stop: 10/06/18 08:58 Morphine Sulfate (Duramorph Pf) Confirm Administered Dose 10 mg .ROUTE .ST-MED ONE Stop: 10/06/18 09:03 Ondansetron HCl (Zofran) 4 mg IVPUSH ONETIME PRN PRN Reason: Nausea/Vomiting Stop: 10/06/18 16:00 Oxycodone HCl (Oxycontin) 10 mg PO ONETIME [facility] Stop: 10/06/18 14:00 Last Admin: 10/06/18 08:19 Dose: 10 mg Pregabalin (Lyrica) 50 mg PO ONETIME [facility] Stop: 10/06/18 14:00 Last Admin: 10/06/18 08:19 Dose: 50 mg Propofol (Diprivan 20 Ml) Confirm Administered Dose 600 mg .ROUTE .STK-MED ONE Stop: 10/06/18 08:57 Sodium Chloride (Saline Flush) 10 ml FLUSH ASDIRECTED PRN PRN Reason: Keep Vein Open Stop: 10/06/18 18:00 Tranexamic Acid (Cyklokapron) Confirm Administered Dose 1,000 mg .ROUTE .STK- MED ONE Stop: 10/06/18 10:20 Last Admin: 10/06/18 11:58 Dose: 1,000 mg Valacyclovir HCl (Valtrex) 1,000 mg PO ASDIRECTED PRN PRN Reason: as directed Vancomycin HCl (Vancomycin) Confirm Administered Dose 1 gm .ROUTE .STK-MED ONE Stop: 10/06/18 10:21 Last Admin: 10/06/18 11:58 Dose: 1 gm - Exam Wound/Incisions: Dressing Dry and Intact General: Alert, Cooperative, No Acute Distress Lungs: Normal Respiratory Effort Extremities: Other (NVS intact for BLE. Coy's negative. Left thigh soft.) - Problem List Review Problem List Initiated/Reviewed/Updated: Yes - My Orders Last 24 Hours: Active Orders 24 hr Category Date Time Status Communication Order [RC] BID Care 10/06/18 10:59 Active Cooling Warming Measures [RC] ASDIRECTED Care 10/06/18 10:59 Inactive Notify Provider [RC] ASDIRECTED Care 10/06/18 10:59 Active Ready for Discharge [RC] PER UNIT ROUTINE Care 10/07/18 08:09 Active Vital Signs [RC] Q15M Care 10/06/18 10:59 Inactive Vital Signs [RC] Q1H Care 10/06/18 10:59 Inactive Regular Diet [DIET] Diet 10/06/18 Lunch Active Acetaminophen/oxyCODONE [Percocet 325-5 MG] Med 10/06/18 13:00 Active 1 - 2 tab PO Q4H PRN Bisacodyl [Dulcolax] Med 10/06/18 13:00 Active 5 mg PO DAILY PRN Cholecalciferol (Vitamin D3) [Vitamin D3] Med 10/07/18 09:00 Active 5,000 unit PO DAILY Cyclobenzaprine [Flexeril] Med 10/06/18 13:00 Active 10 mg PO TID PRN Docusate Sodium [Colace] Med 10/06/18 21:00 Active 100 mg PO BID Famotidine [Pepcid] Med 10/06/18 21:00 Active 20 mg PO Q12H Ketorolac [Toradol] Med 10/06/18 13:00 Active 15 mg IVPUSH Q6H PRN Magnesium Hydroxide [Milk of Magnesia] Med 10/06/18 13:00 Active 30 ml PO BID PRN Morphine Med 10/06/18 13:00 Active 2 mg IVPUSH Q2H PRN Multivitamins,Therapeutic [Thera] Med 10/07/18 09:00 Active 1 each PO DAILY Naloxone [Narcan] Med 10/06/18 13:00 Active 0.1 mg IVPUSH Q5M PRN Ondansetron [Zofran] Med 10/06/18 13:00 Active 4 mg IVPUSH Q6H PRN Rivaroxaban [Xarelto] Med 10/07/18 09:00 Active 10 mg PO DAILY Scopolamine [Transderm-Scop] Med 10/06/18 14:44 Active 1.5 mg TRDERM Q72H PRN Sennosides [Senna] Med 10/06/18 13:00 Active 8.6 mg PO BID PRN Venlafaxine [Effexor XR] Med 10/06/18 21:00 Active 75 mg PO BEDTIME ceFAZolin [Ancef] 2 gm Med 10/06/18 19:00 Active Premix Bag 1 bag IV Q8H Pulse Oximetry Continuous Monitoring [OM.PC] Routine Oth 10/06/18 10:59 Active Medication Orders Bisacodyl (Dulcolax) 5 mg PO DAILY PRN PRN Reason: Constipation Cholecalciferol (Vitamin D3) 5,000 unit PO DAILY [facility] Cyclobenzaprine HCl (Flexeril) 10 mg PO TID PRN PRN Reason: Spasms Docusate Sodium (Colace) 100 mg PO BID [facility] Last Admin: 10/06/18 21:14 Dose: 100 mg Famotidine (Pepcid) 20 mg PO Q12H [facility] Last Admin: 10/06/18 21:14 Dose: 20 mg Cefazolin Sodium/Dextrose 2 gm (/ Premix) 50 mls @ 100 mls/hr IV Q8H [facility] Stop: 10/07/18 11:29 Last Admin: 10/07/18 03:39 Dose: 100 mls/hr Infusion: 10/06/18 18:39 Dose: 100 mls/hr Admin: 10/06/18 18:09 Dose: 100 mls/hr Ketorolac Tromethamine (Toradol) 15 mg IVPUSH Q6H PRN PRN Reason: Pain Last Admin: 10/07/18 06:17 Dose: 15 mg Admin: 10/06/18 23:05 Dose: 15 mg Magnesium Hydroxide (Milk Of Magnesia) 30 ml PO BID PRN PRN Reason: Constipation Morphine Sulfate (Morphine) 2 mg IVPUSH Q2H PRN PRN Reason: Breakthrough Pain Multivitamins (Thera) 1 each PO DAILY [facility] Naloxone HCl (Narcan) 0.1 mg IVPUSH Q5M PRN PRN Reason: Oversedation Ondansetron HCl (Zofran) 4 mg IVPUSH Q6H PRN PRN Reason: Nausea/Vomiting Last Admin: 10/07/18 04:27 Dose: 4 mg Admin: 10/06/18 19:05 Dose: 4 mg Oxycodone/Acetaminophen (Percocet 325-5 Mg) 1 - 2 tab PO Q4H PRN PRN Reason: Pain Last Admin: 10/07/18 06:18 Dose: 2 tab Admin: 10/06/18 23:03 Dose: 2 tab Admin: 10/06/18 18:08 Dose: 2 tab Admin: 10/06/18 13:34 Dose: 1 tab Rivaroxaban (Xarelto) 10 mg PO DAILY [facility] Scopolamine (Transderm-Scop) 1.5 mg TRDERM Q72H PRN PRN Reason: Nausea Last Admin: 10/06/18 15:04 Dose: 1.5 mg Senna (Senna) 8.6 mg PO BID PRN PRN Reason: Constipation Venlafaxine HCl (Effexor Xr) 75 mg PO BEDTIME [facility] Last Admin: 10/06/18 21:13 Dose: 75 mg - Assessment Assessment (Free Text/Narrative):: POD#1 - s/p left SITA - Plan Plan (Free Text/Narrative):: 1. Hgb 10.4. 2. Xarelto 10mg PO daily, frequent mobility, TEDs. 3. SITA precautions. 4. Discharge to home today. The pt's case was discussed with Dr. Sparks.
--- NOTE | 2018-10-07 08:22 | PCM.DCSUM1 ---
Discharge Summary - Hospital Course Brief History: Beatriz Keys" is a 48 yo female who underwent left SITA with Dr. Sparks on 10-06-2018. The procedure was completed under spinal anesthesia with sedation. The pt tolerated the procedure well and was admitted to the Medical- Surgical Unit. Medical management was provided by the Hospitalist service. The pt's Hospital course was uneventful. The pt's Hgb on POD#1 was 10.4. On POD#1, Xarelto 10mg PO daily was initiated for VTE prophylaxis. SCDs and TEDs were also ordered. A Mepilex dressing was placed at the incision site at the time of surgery and remained clean and dry. The pt participated in P.T. and O.T. and progressed well. She followed the SITA precautions. The pt was allowed to WBAT. On POD#1, the pt was deemed appropriate to discharge to home with her . - Discharge Data Discharge Date: 10/07/18 Discharge Disposition: Home, Self-Care 01 Condition: Good - Patient Summary/Data Operative Procedure(s) Performed: left total hip arthroplasty Consults: Consultations 10/06/18 06:51 Consult to Physician [CONS] Routine OT Evaluation and Treatment [CONS] Routine PT Evaluation and Treatment [CONS] Routine - Patient Instructions Diet: Usual Diet as Tolerated Activity: Apply Ice, As Tolerated, Elevate Extremity, Full Weight Bearing Activity, Other: Follow the total hip precautions. Driving: Do Not Drive Showering/Bathing: May Shower Wound/Incision Care: Keep Operative Site/Wound Site Clean and Dry, Do NOT Change Dressing Notify Provider of: Fever, Increased Pain, Swelling and Redness, Drainage, Nausea and/or Vomiting Other/Special Instructions: Please get up and moving around EVERY HOUR while awake. This helps to prevent blood clots. Please use your walker and have help with mobility as needed. Take a short walk in your home EVERY HOUR while awake. Please take the Xarelto blood thinner medication daily as directed. If possible, please HOLD your use of Mobic or meloxicam while you are using the Xarelto. If your rheuamtoid arthritis pain is severe and you feel you need to resume use of the meloxicam, please contact the Clinic to discuss this. At home , please complete the exercises that you learned during the Hospital stay. Schedule for physical therapy. Use the pain medication as needed. The medication may cause drowsiness and constipation. Contact your primary care provider for instructions if you are constipated. You may use a stool softener like docusate sodium or Colace 100mg twice daily and/or a laxative like Miralax daily for constipation. Increase your water and fiber intake while you are using the pain medication. Discontinue use of the pain medication as soon as able. Please do not use other medications that may cause drowsiness (other pain medications, anxiety pills, cold medications, sleeping pills, etc) while using the prescription pain medication. Do not use alcohol while using the pain medication. Wear the [place] hose during the day and you may remove these at night. Elevate the limb to decrease swelling. Place ice to the area often. Place a towel between your skin and the blue pad. Use the incentive spirometer often. Take deep breaths throughout the day. Please keep the dressing in place until follow-up. Notify the Clinic if the dressing becomes saturated. Increase your protein intake while you are healing. If you have diabetes, please closely monitor your blood sugars and notify your primary care provider with abnormal values. Elevated blood sugars increases the risk of infection. Call the Clinic with questions or concerns - [phone]. - Discharge Plan *PRESCRIPTION DRUG MONITORING PROGRAM REVIEWED*: No *COPY OF PRESCRIPTION DRUG MONITORING REPORT IN PATIENT ELENA: No Prescriptions/Med Rec: Acetaminophen/oxyCODONE [Percocet 325-5 MG] 1 - 2 tab PO Q6H PRN #60 tablet PRN Reason: Pain Cyclobenzaprine [Flexeril] 10 mg PO TID PRN #40 tablet PRN Reason: Spasms Rivaroxaban [Xarelto] 10 mg PO DAILY #40 Home Medications: Home Meds Cholecalciferol (Vitamin D3) [Vitamin D3] 5,000 unit PO DAILY 10/03/18 [History] Hydroxychloroquine [Plaquenil] 200 mg PO BID 10/03/18 [History] Meloxicam 15 mg PO DAILY 10/03/18 [History] Multivitamin [Zoo Chews] 1 tab PO DAILY 10/03/18 [History] Venlafaxine HCl [Venlafaxine ER] 75 mg PO DAILY 10/03/18 [History] valACYclovir [Valtrex] 1 gm PO ASDIRECTED PRN 10/03/18 [History] Acetaminophen [Tylenol Extra Strength] 1,000 mg PO BID PRN #1 10/06/18 [Rx] Acetaminophen/oxyCODONE [Percocet 325-5 MG] 1 - 2 tab PO Q6H PRN #60 tablet [Rx] Bisacodyl [Dulcolax] 5 mg PO DAILY PRN tablet 10/06/18 [Rx] Cyclobenzaprine [Flexeril] 10 mg PO TID PRN #40 tablet 10/06/18 [Rx] Docusate Sodium [Colace] 100 mg PO BID cap 10/06/18 [Rx] Famotidine [Pepcid] 20 mg PO Q12H tablet 10/06/18 [Rx] Magnesium Hydroxide [Milk of Magnesia] 30 ml PO BID PRN cup 10/06/18 [Rx] Rivaroxaban [Xarelto] 10 mg PO DAILY #40 10/06/18 [Rx] Scopolamine [Transderm-Scop] 1.5 mg TRDERM Q72H PRN patch 10/06/18 [Rx] Sennosides [Senna] 8.6 mg PO BID PRN tablet 10/06/18 [Rx] Referrals: Lyn Hogan PA-C [Physician Allergy Nurse] - (1. Follow-up with Lyn Hogan PA-C on Sunday, October 14, 2018 at 10:45am. 2. Follow-up with Lyn Hogan PA-C on Sunday, October 21, 2018 at 10:45am.) - Discharge Summary/Plan Comment DC Time >30 min.: No - Patient Data Vitals - Most Recent: Last Vital Signs Temp 98.2 F 10/07/18 03:29 Pulse 74 10/07/18 03:29 Resp 16 10/07/18 03:29 BP 102/78 10/07/18 03:29 Pulse Ox 99 10/07/18 03:29 Weight - Most Recent: 197 lb 6.4 oz I&O - Last 24 hours: Intake & Output 10/06/18 10/07/18 10/07/18 22:59 06:59 14:59 Intake Total 600 950 Output Total 250 1700 Balance 350 -750 Lab Results - Last 24 hrs: Laboratory Results - last 24 hr 01/21/19 01/22/19 01/22/19 Range/Units 08:30 06:30 06:30 WBC 7.56 (3.98-10.04) K/mm3 RBC 3.46 L (3.98-5.22) M/mm3 Hgb 10.4 L (11.2-15.7) gm/L Hct 32.2 L (34.1-44.9) % MCV 93.1 (79.4-94.8) fl MCH 30.1 (25.6-32.2) pg MCHC 32.3 (32.2-35.5) g/dl RDW Std Deviation 40.1 (36.4-46.3) fL Plt Count 218 (182-369) K/mm3 MPV 8.9 L (9.4-12.3) fl Sodium 138 (136-145) mEq/L Potassium 4.1 (3.5-5.1) mEq/L Chloride 102 (98-107) mEq/L Carbon Dioxide 30 (21-32) mEq/L Anion Gap 10.1 (5-15) BUN 17 (7-18) mg/dL Creatinine 0.7 (0.55-1.02) mg/dL Est Cr Clr Drug Dosing 86.72 mL/min Estimated GFR (MDRD) > 60 (>60) mL/min BUN/Creatinine Ratio 24.3 H (14-18) Glucose 96 (74-106) mg/dL Calcium 8.2 L (8.5-10.1) mg/dL Total Bilirubin 0.4 (0.2-1.0) mg/dL AST 31 (15-37) U/L ALT 27 (14-59) U/L Alkaline Phosphatase 51 (46-116) U/L Total Protein 6.1 L (6.4-8.2) g/dl Albumin 2.9 L (3.4-5.0) g/dl Globulin 3.2 gm/dL Albumin/Globulin Ratio 0.9 L (1-2) Blood Type A POSITIVE Gel Antibody Screen Negative Med Orders - Current: Current Medications Bisacodyl (Dulcolax) 5 mg PO DAILY PRN PRN Reason: Constipation Cholecalciferol (Vitamin D3) 5,000 unit PO DAILY [facility] Cyclobenzaprine HCl (Flexeril) 10 mg PO TID PRN PRN Reason: Spasms Docusate Sodium (Colace) 100 mg PO BID [facility] Last Admin: 10/06/18 21:14 Dose: 100 mg Famotidine (Pepcid) 20 mg PO Q12H [facility] Last Admin: 10/06/18 21:14 Dose: 20 mg Cefazolin Sodium/Dextrose 2 gm (/ Premix) 50 mls @ 100 mls/hr IV Q8H [facility] Stop: 10/07/18 11:29 Last Admin: 10/07/18 03:39 Dose: 100 mls/hr Ketorolac Tromethamine (Toradol) 15 mg IVPUSH Q6H PRN PRN Reason: Pain Last Admin: 10/07/18 06:17 Dose: 15 mg Magnesium Hydroxide (Milk Of Magnesia) 30 ml PO BID PRN PRN Reason: Constipation Morphine Sulfate (Morphine) 2 mg IVPUSH Q2H PRN PRN Reason: Breakthrough Pain Multivitamins (Thera) 1 each PO DAILY [facility] Naloxone HCl (Narcan) 0.1 mg IVPUSH Q5M PRN PRN Reason: Oversedation Ondansetron HCl (Zofran) 4 mg IVPUSH Q6H PRN PRN Reason: Nausea/Vomiting Last Admin: 10/07/18 04:27 Dose: 4 mg Oxycodone/Acetaminophen (Percocet 325-5 Mg) 1 - 2 tab PO Q4H PRN PRN Reason: Pain Last Admin: 10/07/18 06:18 Dose: 2 tab Rivaroxaban (Xarelto) 10 mg PO DAILY [facility] Scopolamine (Transderm-Scop) 1.5 mg TRDERM Q72H PRN PRN Reason: Nausea Last Admin: 10/06/18 15:04 Dose: 1.5 mg Senna (Senna) 8.6 mg PO BID PRN PRN Reason: Constipation Venlafaxine HCl (Effexor Xr) 75 mg PO BEDTIME [facility] Last Admin: 10/06/18 21:13 Dose: 75 mg Discontinued Medications Acetaminophen (Tylenol) 975 mg PO ONETIME [facility] Stop: 10/06/18 14:00 Last Admin: 10/06/18 08:20 Dose: 975 mg Aspirin (Ecotrin) 325 mg PO BID [facility] Bupivacaine HCl (Marcaine 0.25%) Confirm Administered Dose 30 ml .ROUTE .STK- MED ONE Stop: 10/06/18 10:21 Last Admin: 10/06/18 11:57 Dose: 30 ml Cefazolin Sodium (Ancef) Confirm Administered Dose 2 gm .ROUTE .STK-MED ONE Stop: 10/06/18 08:59 Last Admin: 10/06/18 11:51 Dose: 2 gm Cefazolin Sodium (Ancef) Confirm Administered Dose 2 gm .ROUTE .STK-MED ONE Stop: 10/06/18 10:21 Morphine Sulfate 8 mg/Epinephrine HCl 0.3 mg/Cefuroxime Sodium 750 mg/Ketorolac Tromethamine 30 mg/Sodium Chloride 27.9 ml 0 mg .XX ONETIME ONE Stop: 10/06/18 11:21 Last Admin: 10/06/18 11:56 Dose: 788.3 mg Diphenhydramine HCl (Benadryl) 25 mg IVPUSH Q6H PRN PRN Reason: pruritis Stop: 10/06/18 15:00 Ephedrine Sulfate (Ephedrine In Ns) Confirm Administered Dose 25 mg .ROUTE .ST- MED ONE Stop: 10/06/18 10:49 Fentanyl (Sublimaze) Confirm Administered Dose 100 mcg .ROUTE .STK-MED ONE Stop: 10/06/18 08:58 Fentanyl (Sublimaze) 50 mcg IVPUSH Q5M PRN PRN Reason: Pain Stop: 10/06/18 14:00 Hydroxychloroquine Sulfate (Plaquenil) 200 mg PO BID [facility] Lactated Ringer's (Ringers, Lactated) 1,000 mls @ 125 mls/hr IV ASDIRECTED [facility] Stop: 10/06/18 23:00 Last Admin: 10/06/18 08:30 Dose: 125 mls/hr Lactated Ringer's (Ringers, Lactated) Confirm Administered Dose 1,000 mls @ as directed .ROUTE .STK-MED ONE Stop: 10/06/18 09:00 Lactated Ringer's (Ringers, Lactated) Confirm Administered Dose 1,000 mls @ as directed .ROUTE .STK-MED ONE Stop: 10/06/18 11:39 Iodine (Iodine 2% Mild Tincture) Confirm Administered Dose 30 ml .ROUTE .STK- MED ONE Stop: 10/06/18 10:21 Last Admin: 10/06/18 11:49 Dose: 18 ml Lidocaine/Sodium Bicarbonate (Buffered Lidocaine 1% In Ns 8.4%) 0.25 ml IDERM ONETIME PRN PRN Reason: Prior to IV Start Stop: 10/06/18 18:00 Last Admin: 10/06/18 08:30 Dose: 0.25 ml Meperidine HCl (Meperidine) 12.5 mg IVPUSH ONETIME PRN PRN Reason: Shivering Stop: 10/06/18 14:00 Midazolam HCl (Versed 1 Mg/Ml) Confirm Administered Dose 2 mg .ROUTE .STK-MED ONE Stop: 10/06/18 08:58 Morphine Sulfate (Duramorph Pf) Confirm Administered Dose 10 mg .ROUTE .STK-MED ONE Stop: 10/06/18 09:03 Ondansetron HCl (Zofran) 4 mg IVPUSH ONETIME PRN PRN Reason: Nausea/Vomiting Stop: 10/06/18 16:00 Oxycodone HCl (Oxycontin) 10 mg PO ONETIME [facility] Stop: 10/06/18 14:00 Last Admin: 10/06/18 08:19 Dose: 10 mg Pregabalin (Lyrica) 50 mg PO ONETIME [facility] Stop: 10/06/18 14:00 Last Admin: 10/06/18 08:19 Dose: 50 mg Propofol (Diprivan 20 Ml) Confirm Administered Dose 600 mg .ROUTE .STK-MED ONE Stop: 10/06/18 08:57 Sodium Chloride (Saline Flush) 10 ml FLUSH ASDIRECTED PRN PRN Reason: Keep Vein Open Stop: 10/06/18 18:00 Tranexamic Acid (Cyklokapron) Confirm Administered Dose 1,000 mg .ROUTE .STK- MED ONE Stop: 10/06/18 10:20 Last Admin: 10/06/18 11:58 Dose: 1,000 mg Valacyclovir HCl (Valtrex) 1,000 mg PO ASDIRECTED PRN PRN Reason: as directed Vancomycin HCl (Vancomycin) Confirm Administered Dose 1 gm .ROUTE .STK-MED ONE Stop: 10/06/18 10:21 Last Admin: 10/06/18 11:58 Dose: 1 gm
[2018-10-07] MEDS ORDERED: Sodium Chloride 0.9% 500 ML IV ONE (08:30)
[2018-10-07] MEDS: Docusate Sodium 100 MG Cap PO SCH (08:44)
[2018-10-07] MEDS: Famotidine 20 MG Tab PO SCH (08:44)
[2018-10-07] MEDS ORDERED: Cholecalciferol (Vitamin D3) 5,000 UNIT Tab PO SCH (09:00)
[2018-10-07] MEDS ORDERED: Multivitamins,Therapeutic Tab PO SCH (09:00)
[2018-10-07] MEDS ORDERED: Rivaroxaban 10 MG Tab PO SCH (09:00)
[2018-10-07] MEDS ORDERED: Aspirin 325 MG Tab.EC PO SCH (09:00)
[2018-10-07 14:08] VITALS: BP 102/68
--- NOTE | 2018-10-16 11:14 | OR ---
DATE OF OPERATION: 10/06/2018 SURGEON: Ye Spakrs MD OPERATION PERFORMED: Left total hip arthroplasty. PREOPERATIVE DIAGNOSIS: Left hip osteoarthrosis. POSTOPERATIVE DIAGNOSIS: Left hip osteoarthrosis. ANESTHESIA: Local MAC with spinal. ANESTHESIA PROVIDER: Maria Dolores Crane CRNA. COCKTAIL SERVER: Lyn Hogan PA-C, and Bertha Navarro LPN. ESTIMATED BLOOD LOSS: 400 mL. COMPLICATIONS: None. CONDITION: Stable. IMPLANTS: 1. [place] size 52 mm Tritanium acetabular cup. 2. [place] size 2 Accolade II stem. 3. Vy size 42 x 28 MDM components, -2.7. DESCRIPTION OF PROCEDURE: The patient was identified in the preoperative holding area. Proper site was marked and identified by the surgeon. The patient was taken back to the operating theater, where after adequate anesthesia, the patient was placed in a right lateral decubitus position. Axillary roll was placed. All bony prominences were well padded. All pegs were placed and were well padded. The patient's gluteal fold was parallel to the floor. At this time, the left hip was then sterilely prepped and draped in the usual sterile fashion. OR time-out was performed. The patient received 2 g of IV Ancef. At this time, a standard posterior incision was made over the greater trochanter. This was taken down to the IT band and gluteal fascia, which was incised along the incisional length. Short external rotators were identified and takedown of the short external rotators as well as capsule was done all the way to the level of the lesser trochanter up to the piriformis. The hip was then dislocated. Neck cut was then completed and found to be adequate. Attention was turned to the acetabulum. Anterior and posterior acetabular retractors were placed. We started with a 42 reamer and we were able to ream up to a 52, which was found to have adequate purchase. At this time, the 52 mm Tritanium acetabular cup was impacted into place in roughly 45 degrees of abduction and 20 degrees of anteversion. The MDM liner was then impacted in place. Attention was turned to the femur. Box chisel was used out laterally. The starter awl was placed down the canal. Starting with the 0 broach, I was able to broach up to a size 2, which was found to be rotationally and vertically stable. Trial implants were then trialed and the patient's 0 head was found to have a little bit long of leg lengths, so -2.7 was trialed and was found to be stable throughout the range of motion. The 42 x 28 mm MDM components were then constructed on the back table with the -2.7. The size 2 Accolade II stem was impacted into place and then the MDM 42 x 28 components were impacted onto the stem. The hip was then relocated. A #2 Ethibond suture was used for closure of the capsule as well as short external rotators. 1 L dilute Betadine solution was irrigated through the hip along with 3 L of pulse lavage irrigation with Ancef. Topical tranexamic acid as well as vancomycin powder were placed and a periarticular injection was completed. A #2 barbed suture was used for closure of the IT band and gluteal fascia, 2-0 Vicryl was used subcutaneously, and Prineo was used for the skin. The patient went to the PACU in stable condition. MIKE /[id number]
== END 2018-10-07 13:30 | disposition home or self-care (01) | DRG 301 ==
LOC: JD.MS 10-06 07:45
PROVIDERS: ADMIT Orthopaedic Surgery; ATTEND Orthopaedic Surgery
PROC: 0SRB0JZ Replacement of Left Hip Joint with Synthetic Substitute, Open Approach (ICD-10-PCS; principal; 2018-10-06)
PROC: 3E0U029 Introduction of Other Anti-infective into Joints, Open Approach (ICD-10-PCS; principal; 2018-10-06)
DX: M16.12 Unilateral primary osteoarthritis, left hip (principal); I95.9 Hypotension, unspecified; E66.9 Obesity, unspecified; M06.9 Rheumatoid arthritis, unspecified; Z68.33 Body mass index [BMI] 33.0-33.9, adult; F41.9 Anxiety disorder, unspecified; G89.29 Other chronic pain; F32.9 Major depressive disorder, single episode, unspecified; A60.00 Herpesviral infection of urogenital system, unspecified; R32 Unspecified urinary incontinence; E03.9 Hypothyroidism, unspecified; G47.33 Obstructive sleep apnea (adult) (pediatric); D64.9 Anemia, unspecified; M79.7 Fibromyalgia; E28.2 Polycystic ovarian syndrome; Z79.01 Long term (current) use of anticoagulants; Z91.048 Other nonmedicinal substance allergy status; Z90.710 Acquired absence of both cervix and uterus; Z79.899 Other long term (current) drug therapy
CPT/HCPCS: 01214; 36415; 73501-26-LT; 73501-LT; 80053; 85027; 86850; 86900; 86901; 87641; 94760; 94762; 97110-GP; 97116-GP; 97161-GP; 97165-GO; 97535-GO; A9270-GY; C1776; J0171; J0690; J0697; J1885; J2250; J2270; J2405; J2704; J3010; J3370; J3490; J7040; J7050; J7120

== ENCOUNTER 2019-05-25 09:01 | Inpatient (IN) | payer BC ==
[~2019-05-25 09:01] MED LIST: Bisacodyl 5 MG Tab PO PRN; Lactated Ringers 1,000 ML IV SCH; Lidocaine 1%/Sod Bicarbonate in NS 8.4% 1 ML Syringe IDERM PRN; Magnesium Hydroxide 400 MG/5 ML Susp 30 ML Cup PO PRN; Midazolam 1 MG/ML 2 ML SDV ONE; Morphine 2 MG/ML Syringe IVPUSH PRN; Naloxone 0.4 MG/ML SDV IVPUSH PRN; Ondansetron 4 MG/2 ML SDV IVPUSH PRN; Propofol 200 MG/20 ML SDV ONE; Scopolamine 1.5 MG Transdermal Patch TRDERM SCH; Sennosides 8.6 MG Tab PO PRN; Sodium Chloride 0.9% 10 ML Syringe FLUSH PRN; ceFAZolin 1 GM Vial ONE; fentaNYL 100 MCG/2 ML SDV ONE
[2019-05-25] MEDS ORDERED: Acetaminophen 325 MG Tab PO SCH (09:21)
[2019-05-25] MEDS ORDERED: Pregabalin 25 MG Cap PO SCH (09:22)
[2019-05-25] MEDS ORDERED: oxyCODONE ER 10 MG TAB.ER PO SCH (09:22)
--- NOTE | 2019-05-25 09:41 | PCM.PREANE ---
Preanesthetic Assessment - Anesthesia/Transfusion/Family Hx Anesthesia History: Prior Anesthesia Reaction Type of Anesthesia Reaction: Excessive Nausea/Vomiting Other Type of Anesthesia Reaction Comment: "stiffness" Family History of Anesthesia Reaction: No Transfusion History: No Prior Transfusion(s) - Review of Systems General: Other (obesity, rheumatoid arthritis on steroids, anemia) Pulmonary: No Symptoms Cardiovascular: No Symptoms Gastrointestinal: No Symptoms Neurological: No Symptoms Other: Reports: Thyroid Problems, Depression, Anxiety - Physical Assessment NPO Status Date: 05/24/19 NPO Status Time: 23:00 Vital Signs: Last Vital Signs Temp 36.8 C 05/25/19 09:15 Pulse 74 05/25/19 09:15 Resp 16 05/25/19 09:15 BP 116/79 05/25/19 09:15 Pulse Ox 97 05/25/19 09:15 Weight: 95 kg ASA Class: 2 Mental Status: Alert & Oriented x3 Airway Class: Mallampati = 2 Dentition: Reports: Normal Dentition Thyro-Mental Finger Breadths: 3 Mouth Opening Finger Breadths: 3 ROM/Head Extension: Full Lungs: Clear to Auscultation, Normal Respiratory Effort - Lab Values: Laboratory Last Values MRSA (PCR) Negative 05/13/19 16:46 - Allergies Allergies/Adverse Reactions: Allergies Allergy/AdvReac Type Severity Reaction Status Date / Time cat dander Allergy Itching Verified 05/22/19 15:26 - Blood Blood Available: No Product(s) Available: None - Acknowledgements Anesthesia Type Planned: Spinal Pt an Appropriate Candidate for the Planned Anesthesia: Yes Alternatives and Risks of Anesthesia Discussed w Pt/Guardian: Yes Pt/Guardian Understands and Agrees with Anesthesia Plan: Yes PreAnesthesia Questionnaire HEENT History: Reports: Allergic Rhinitis, Impaired Vision Other HEENT History: Patient wears eye glasses. Cardiovascular History: Reports: Heart Murmur Respiratory History: Reports: Sleep Apnea Other Respiratory History: Patient reports having had sleep apnea, but has lost about 100lbs and it has resolved. Did not require a CPAP. 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 Musculoskeletal History: Reports: Fibromyalgia, RA, Other (See Below) Other Musculoskeletal History: chronic left hip pain, fibromyalgia, polyarthritis Neurological History: Reports: None Psychiatric History: Reports: Anxiety, Depression Endocrine/Metabolic History: Reports: Hypothyroidism, Obesity/BMI 30+, Other ( See Below) Other Endocrine/Metabolic History: Goiter Hematologic History: Reports: Anemia Immunologic History: Reports: None Oncologic (Cancer) History: Reports: None Dermatologic History: Reports: Other (See Below) Other Dermatologic History: Skin tags - Infectious Disease History Infectious Disease History: Reports: Other (See Below) Other Infectious Disease History: West Nile - Past Surgical History Head Surgeries/Procedures: Reports: None HEENT Surgical History: Reports: Oral Surgery Cardiovascular Surgical History: Reports: None Respiratory Surgical History: Reports: None GI Surgical History: Reports: Appendectomy Female Surgical History: Reports: Hysterectomy Other Endocrine Surgeries/Procedures: Patient denies obesity at this time after weight loss as well as having thyroid problems. Neurological Surgical History: Reports: None Musculoskeletal Surgical History: Reports: None, Joint Replacement Other Musculoskeletal Surgeries/Procedures:: Left Hip Replacement 10-06-2018 Oncologic Surgical History: Reports: None - SUBSTANCE USE Smoking Status *Q: Never Smoker Recreational Drug Use History: No - HOME MEDS Home Medications: Home Meds Acetaminophen [Tylenol Extra Strength] 1,000 mg PO BID 05/22/19 [History] Amoxicillin 2,000 mg PO ASDIRECTED 05/22/19 [History] Cholecalciferol (Vitamin D3) [Vitamin D3] 5,000 unit PO DAILY 05/22/19 [History] Diclofenac Sodium [Voltaren 1% Gel] 1 dose .ROUTE ASDIRECTED 05/22/19 [History] Hydroxychloroquine Sulfate [Plaquenil] 200 mg PO BID 05/22/19 [History] Loratadine [Claritin] 10 mg PO DAILY 05/22/19 [History] Meloxicam 15 mg PO DAILY 05/22/19 [History] Metaxalone 800 mg PO DAILY 05/22/19 [History] Multivitamin [Daily Multiple Vitamin] 1 tab PO DAILY 05/22/19 [History] Venlafaxine [Effexor] 75 mg PO DAILY 05/22/19 [History] valACYclovir [Valtrex] 1 gm PO DAILY PRN 05/22/19 [History] - CURRENT (IN HOUSE) MEDS Current Meds: Current Medications Acetaminophen (Tylenol) 975 mg PO NOW [facility] Stop: 05/25/19 11:00 Bisacodyl (Dulcolax) 5 mg PO DAILY PRN PRN Reason: Constipation Morphine Sulfate 8 mg/Epinephrine HCl 0.3 mg/Cefuroxime Sodium 750 mg/Ketorolac Tromethamine 30 mg/Sodium Chloride 27.9 ml 0 mg .XX ONETIME ONE Stop: 05/25/19 10:01 Cyclobenzaprine HCl (Flexeril) 10 mg PO TID PRN PRN Reason: Spasms Docusate Sodium (Colace) 100 mg PO BID [facility] Famotidine (Pepcid) 20 mg PO Q12H [facility] Lactated Ringer's (Ringers, Lactated) 1,000 mls @ 125 mls/hr IV ASDIRECTED [facility] Cefazolin Sodium/Dextrose 2 gm (/ Premix) 50 mls @ 100 mls/hr IV Q8H [facility] Stop: 05/25/19 23:14 Ketorolac Tromethamine (Toradol) 15 mg IVPUSH Q6H PRN PRN Reason: Pain Lidocaine/Sodium Bicarbonate (Buffered Lidocaine 1% In Ns 8.4%) 0.25 ml IDERM ONETIME PRN PRN Reason: Prior to IV Start Stop: 05/25/19 16:00 Magnesium Hydroxide (Milk Of Magnesia) 30 ml PO BID PRN PRN Reason: Constipation Morphine Sulfate (Morphine) 2 mg IVPUSH Q2H PRN PRN Reason: Breakthrough Pain Naloxone HCl (Narcan) 0.1 mg IVPUSH Q5M PRN PRN Reason: Oversedation Ondansetron HCl (Zofran) 4 mg IVPUSH Q6H PRN PRN Reason: Nausea/Vomiting Oxycodone HCl (Oxycontin) 10 mg PO ONETIME [facility] Stop: 05/25/19 11:00 Oxycodone/Acetaminophen (Percocet 325-5 Mg) 1 - 2 tab PO Q4H PRN PRN Reason: Pain Pregabalin (Lyrica) 50 mg PO ONETIME [facility] Stop: 05/25/19 11:00 Rivaroxaban (Xarelto) 10 mg PO DAILY [facility] Scopolamine (Transderm-Scop) 0 mg TRDERM ONETIME [facility] Stop: 05/25/19 14:00 Senna (Senna) 8.6 mg PO BID PRN PRN Reason: Constipation Sodium Chloride (Saline Flush) 10 ml FLUSH ASDIRECTED PRN PRN Reason: Keep Vein Open Discontinued Medications Cefazolin Sodium (Ancef) Confirm Administered Dose 2 gm .ROUTE .STK-MED ONE Stop: 05/25/19 08:15 Fentanyl (Sublimaze) Confirm Administered Dose 100 mcg .ROUTE .STK-MED ONE Stop: 05/25/19 08:15 Midazolam HCl (Versed 1 Mg/Ml) Confirm Administered Dose 2 mg .ROUTE .STK-MED ONE Stop: 05/25/19 08:15 Propofol (Diprivan 20 Ml) Confirm Administered Dose 600 mg .ROUTE .STK-MED ONE Stop: 05/25/19 08:15
[2019-05-25] MEDS ORDERED: Triamcinolone Acetonide 40 MG/ML 1 ML MDV ONE (10:13)
[2019-05-25] MEDS ORDERED: Vancomycin 1 GM SDV ONE (10:13)
[2019-05-25] MEDS ORDERED: Bupivacaine 0.25% 10 ML SDV ONE ×2 (10:14)
[2019-05-25] MEDS ORDERED: ceFAZolin 1 GM Vial ONE (10:14)
[2019-05-25] MEDS ORDERED: Iodine/Sodium Iodide 2% Tincture 30 ML Bottle ONE (10:14)
[2019-05-25] MEDS ORDERED: Phenylephrine/Normal Saline 100 MCG/ML 10 ML Syringe ONE (11:40)
[2019-05-25] MEDS ORDERED: Ketorolac 30 MG/ML SDV ONE (11:59)
[2019-05-25] MEDS ORDERED: Dexamethasone 4 MG/ML 5 ML MDV ONE (11:59)
[2019-05-25] MEDS ORDERED: Ondansetron 4 MG/2 ML SDV ONE (11:59)
[2019-05-25] MEDS ORDERED: Propofol 200 MG/20 ML SDV ONE ×2 (12:28→13:03)
[2019-05-25] MEDS ORDERED: Lactated Ringers 1,000 ML ONE ×2 (13:00→13:27)
[2019-05-25] MEDS: Morphine 8 MG, EPINEPHrine 0.3 MG, Cefuroxime 750 MG, Ketorolac 30 MG, Sodium Chloride ... ONE ×10 (13:01→18:50)
--- NOTE | 2019-05-25 13:51 | PCM.POSTAN ---
POST ANESTHESIA ASSESSMENT - MENTAL STATUS Mental Status: Alert, Oriented - VITAL SIGNS Vital Signs: Last Vital Signs Temp 36.8 C 05/25/19 09:15 Pulse 74 05/25/19 09:15 Resp 16 05/25/19 09:15 BP 116/79 05/25/19 09:15 Pulse Ox 97 05/25/19 09:15 - RESPIRATORY Respiratory Status: Respiratory Rate WNL, Airway Patent, O2 Saturation Stable - CARDIOVASCULAR CV Status: Pulse Rate WNL, Blood Pressure Stable - GASTROINTESTINAL GI Status: No Symptoms - PAIN Pain Score: 0 - POST OP HYDRATION Hydration Status: Adequate & Stable
[2019-05-25] MEDS ORDERED: Ondansetron 4 MG/2 ML SDV IVPUSH PRN (13:52)
[2019-05-25] MEDS ORDERED: HYDROmorphone 0.5 MG/0.5 ML Syringe IVPUSH PRN (13:52)
[2019-05-25] MEDS ORDERED: diphenhydrAMINE 50 MG/ML SDV IVPUSH PRN (13:52)
[2019-05-25] MEDS ORDERED: fentaNYL 100 MCG/2 ML SDV IVPUSH PRN (13:52)
--- NOTE | 2019-05-25 14:26 | CR ---
Pelvis and right hip: AP view of the pelvis was obtained as well as crosstable lateral view of the right hip. Comparison: Previous pelvis and left hip study of 10/06/18. Stable left hip prosthesis is seen from previous exam. Recently placed right hip prosthesis is seen. Components are aligned. Soft tissue air is noted from the surgical procedure. Disc space narrowing is noted within the lower lumbar spine. No fracture or other abnormality is seen. Impression: 1. Recently placed right hip prosthesis which appears within normal limits. Stable left hip prosthesis from prior exam. Diagnostic code #2
[2019-05-25] MEDS ORDERED: Carboxymethylcellulose Sodium 1% Ophth Gel 15 ML Bottle EYEBOTH PRN (15:09)
--- NOTE | 2019-05-25 17:20 | PCM.CONS ---
H&P History of Present Illness - General Date of Service: 05/25/19 Admit Problem/Dx: Admission Diagnosis/Problem Admission Diagnosis/Problem Osteoarthritis of hip - History of Present Illness Initial Comments - Free Text/Narative: 48-year-old female with history of rheumatoid arthritis postop for right total hip arthroplasty and right knee steroid injection. Patient states she is doing well without any nausea, chest pain, shortness of breath, or chest pain. Patient is usually on Plaquenil for her rheumatoid arthritis. She takes Skelaxin in the evening for muscle spasms. She has held her plaque without implant and restart it when she is discharged. Right Hip Pain Pain Score (Numeric/FACES): 6 - Related Data Allergies/Adverse Reactions: Allergies Allergy/AdvReac Type Severity Reaction Status Date / Time cat dander Allergy Itching Verified 05/22/19 15:26 Home Medications: Home Meds Acetaminophen [Tylenol Extra Strength] 1,000 mg PO BID 05/22/19 [History] Amoxicillin 2,000 mg PO ASDIRECTED 05/22/19 [History] Cholecalciferol (Vitamin D3) [Vitamin D3] 5,000 unit PO DAILY 05/22/19 [History] Diclofenac Sodium [Voltaren 1% Gel] 1 dose .ROUTE ASDIRECTED 05/22/19 [History] Hydroxychloroquine Sulfate [Plaquenil] 200 mg PO BID 05/22/19 [History] Loratadine [Claritin] 10 mg PO DAILY 05/22/19 [History] Metaxalone 800 mg PO DAILY 05/22/19 [History] Multivitamin [Daily Multiple Vitamin] 1 tab PO DAILY 05/22/19 [History] Venlafaxine [Effexor] 75 mg PO DAILY 05/22/19 [History] valACYclovir [Valtrex] 1 gm PO DAILY PRN 05/22/19 [History] Acetaminophen/oxyCODONE [Percocet 325-5 MG] 1 - 2 tab PO Q4H PRN #0 tablet 05/25 [Rx] Bisacodyl [Dulcolax] 5 mg PO DAILY PRN tablet 05/25/19 [Rx] Carboxymethylcellulose Sodium [Refresh Liquigel 1%] 0 ml EYEBOTH Q2HR PRN bottle 05/25/19 [Rx] Docusate Sodium [Colace] 100 mg PO BID cap 05/25/19 [Rx] Famotidine [Pepcid] 20 mg PO Q12H tablet 05/25/19 [Rx] Magnesium Hydroxide [Milk of Magnesia] 30 ml PO BID PRN cup 05/25/19 [Rx] Rivaroxaban [Xarelto] 10 mg PO DAILY tablet 05/25/19 [Rx] Sennosides [Senna] 8.6 mg PO BID PRN tablet 05/25/19 [Rx] Past Medical History HEENT History: Reports: Allergic Rhinitis, Impaired Vision Other HEENT History: Patient wears eye glasses. Cardiovascular History: Reports: Heart Murmur Respiratory History: Reports: Sleep Apnea Other Respiratory History: Patient reports having had sleep apnea, but has lost about 100lbs and it has resolved. Did not require a CPAP. 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 Musculoskeletal History: Reports: Fibromyalgia, RA, Other (See Below) Other Musculoskeletal History: chronic left hip pain, fibromyalgia, polyarthritis Neurological History: Reports: None Psychiatric History: Reports: Anxiety, Depression Endocrine/Metabolic History: Reports: Hypothyroidism, Obesity/BMI 30+, Other ( See Below) Other Endocrine/Metabolic History: Goiter Hematologic History: Reports: Anemia Immunologic History: Reports: None Oncologic (Cancer) History: Reports: None Dermatologic History: Reports: Other (See Below) Other Dermatologic History: Skin tags - Infectious Disease History Infectious Disease History: Reports: Other (See Below) Other Infectious Disease History: West Nile - Past Surgical History Head Surgeries/Procedures: Reports: None HEENT Surgical History: Reports: Oral Surgery Cardiovascular Surgical History: Reports: None Respiratory Surgical History: Reports: None GI Surgical History: Reports: Appendectomy Female Surgical History: Reports: Hysterectomy Other Endocrine Surgeries/Procedures: Patient denies obesity at this time after weight loss as well as having thyroid problems. Neurological Surgical History: Reports: None Musculoskeletal Surgical History: Reports: None, Joint Replacement Other Musculoskeletal Surgeries/Procedures:: Left Hip Replacement 10-06-2018 Oncologic Surgical History: Reports: None Social & Family History - Family History Family Medical History: Noncontributory - Tobacco Use Smoking Status *Q: Never Smoker - Caffeine Use Caffeine Use: Reports: Coffee, Energy Drinks - Recreational Drug Use Recreational Drug Use: No Drug Use in Last 12 Months: No H&P Review of Systems - Review of Systems: Review Of Systems: ROS reveals no pertinent complaints other than HPI. Exam - Exam Exam: See Below - Vital Signs Vital Signs: Last Vital Signs Temp 97.8 F 05/25/19 14:30 Pulse 74 05/25/19 09:15 Resp 10 L 05/25/19 14:30 BP 102/69 05/25/19 14:30 Pulse Ox 95 05/25/19 14:30 Weight: 210 lb - Exam Quality Assessment: No: Supplemental Oxygen General: Alert HEENT: Conjunctiva Clear, Mucosa Moist & [place] Neck: Supple, Trachea Midline Lungs: Clear to Auscultation, Normal Respiratory Effort Cardiovascular: Regular Rate, Regular Rhythm GI/Abdominal Exam: Normal Bowel Sounds, Soft, Non-Tender, No Organomegaly, No Distention, No Abnormal Bruit, No Mass Extremities: Normal Inspection, No Pedal Edema Skin: Warm, Dry, Intact Neurological: Cranial Nerves Intact Neuro Extensive - Mental Status: Alert, Oriented x3, Normal Mood/Affect, Normal Cognition, Memory Intact Neuro Extensive - Motor, Sensory, Reflexes: CN II-XII Intact Psychiatric: Alert, Normal Affect, Normal Mood - Patient Data Lab Results Last 24 hrs: Laboratory Results - last 24 hr 05/25/19 Range/Units 10:05 Blood Type A POSITIVE Gel Antibody Screen Negative Consult PN Assessment/Plan Procedures: Procedures ANTINUCLEAR ANTIBODIES (10/11/16) ASSAY OF FREE THYROXINE (05/07/19) ASSAY OF PREALBUMIN (05/07/19) ASSAY THYROID STIM HORMONE (05/07/19) C-REACTIVE PROTEIN (10/10/16) CCP ANTIBODY (10/11/16) COMPLETE CBC AUTOMATED (05/07/19) COMPREHEN METABOLIC PANEL (05/07/19) CULTURE SCREEN ONLY (12/13/15) DRAIN/INJ JOINT/BURSA W/O US (04/10/19) LIPID PANEL (10/18/17) MANUAL THERAPY 1/> REGIONS (11/11/18) MEDICAL NUTRITION INDIV IN (03/20/17) MRI JNT OF LWR EXTRE W/O DYE (02/25/17) NEUROMUSCULAR REEDUCATION (12/04/18) PROTHROMBIN TIME (05/07/19) PT EVAL LOW COMPLEX 20 MIN (10/16/18) RBC SED RATE AUTOMATED (10/10/16) RHEUMATOID FACTOR TEST QUAL (10/11/16) ROUTINE VENIPUNCTURE (05/07/19) STREP A AG IA (12/13/15) THERAPEUTIC EXERCISES (12/04/18) THROMBOPLASTIN TIME PARTIAL (05/07/19) ULTRASOUND BREAST LIMITED (10/30/16) URINALYSIS AUTO W/O SCOPE (10/18/17) URINALYSIS AUTO W/SCOPE (05/07/19) X-RAY EXAM CHEST 2 VIEWS (09/23/18) X-RAY EXAM HIP UNI 2-3 VIEWS (12/13/15) X-RAY EXAM L-S SPINE 2/3 VWS (12/13/15) X-RAY EXAM SACRUM TAILBONE (12/13/15) Problem List Initiated/Reviewed/Updated: Yes My Orders Last 24 Hours: My Active Orders 05/25/19 15:09 Carboxymethylcellulose Sodium [Refresh Liquigel 1%] 0 ml EYEBOTH Q2HR PRN Plan: Assessment * 48-year-old with rheumatoid arthritis status post right total hip arthroplasty and right knee steroid injection * Orthopedics surgery requesting medical management Plan * Patient is to continue off of her plaque [place] until discharge. * Primary care team to treat pain and VTE prophylaxis * Thank you for allowing us to follow this patient with you.
[2019-05-25] MEDS: ceFAZolin 2 GM in Premix Bag 1 BAG IV SCH (17:29)
[2019-05-25] MEDS: Acetaminophen/oxyCODONE 325-5 MG Tab PO PRN ×2 (17:30→21:38)
[2019-05-25] MEDS: Docusate Sodium 100 MG Cap PO SCH (20:30)
[2019-05-25] MEDS: Famotidine 20 MG Tab PO SCH (20:30)
[2019-05-26] MEDS: ceFAZolin 2 GM in Premix Bag 1 BAG IV SCH ×2 (01:32→09:35)
[2019-05-26] MEDS: Acetaminophen/oxyCODONE 325-5 MG Tab PO PRN ×4 (01:34→14:24)
[2019-05-26] MEDS: Ketorolac 15 MG/ML SDV IVPUSH PRN ×2 (03:57→12:32)
[2019-05-26] MEDS: Cyclobenzaprine 10 MG Tab PO PRN ×3 (03:57→11:50)
--- NOTE | 2019-05-26 07:50 | PCM48HPAN ---
Post Anesthesia Note - EVALUATION WITHIN 48HRS OF ANESTHETIC Vital Signs in Normal Range: Yes Patient Participated in Evaluation: Yes Respiratory Function Stable: Yes Airway Patent: Yes Cardiovascular Function Stable: Yes Hydration Status Stable: Yes Pain Control Satisfactory: Yes Nausea and Vomiting Control Satisfactory: Yes Mental Status Recovered: Yes Vital Signs: Last Vital Signs Temp 36.5 C 05/26/19 02:05 Pulse 73 05/26/19 02:05 Resp 16 05/26/19 02:05 BP 96/47 L 05/26/19 02:06 Pulse Ox 95 05/26/19 05:45
--- NOTE | 2019-05-26 08:04 | PCM.SURGPN ---
- General Info Date of Service: 05/26/19 POD#: 1 Functional Status: Reports: Pain Controlled, Tolerating Diet, Ambulating, Urinating, Incentive Spirometry, Other - Patient Data Vitals - Most Recent: Last Vital Signs Temp 97.7 F 05/26/19 02:05 Pulse 73 05/26/19 02:05 Resp 16 05/26/19 02:05 BP 96/47 L 05/26/19 02:06 Pulse Ox 95 05/26/19 05:45 Weight - Most Recent: 217 lb 9.6 oz I&O - Last 24 Hours: Intake & Output 05/25/19 05/26/19 05/26/19 22:59 06:59 14:59 Intake Total 740 1600 Output Total 1325 Balance 740 275 Lab Results Last 24 Hrs: Laboratory Results - last 24 hr 05/25/19 05/26/19 05/26/19 Range/Units 10:05 05:40 05:40 WBC 10.58 H (3.98-10.04) K/mm3 RBC 3.01 L (3.98-5.22) M/mm3 Hgb 9.1 L D (11.2-15.7) gm/L Hct 27.9 L (34.1-44.9) % MCV 92.7 (79.4-94.8) fl MCH 30.2 (25.6-32.2) pg MCHC 32.6 (32.2-35.5) g/dl RDW Std Deviation 39.1 (36.4-46.3) fL Plt Count 208 D (182-369) K/mm3 MPV 8.9 L (9.4-12.3) fl Sodium 136 (136-145) mEq/L Potassium 3.9 (3.5-5.1) mEq/L Chloride 102 (98-107) mEq/L Carbon Dioxide 24 (21-32) mEq/L Anion Gap 13.9 (5-15) BUN 14 (7-18) mg/dL Creatinine 0.7 (0.55-1.02) mg/dL Est Cr Clr Drug Dosing 86.72 mL/min Estimated GFR (MDRD) > 60 (>60) mL/min BUN/Creatinine Ratio 20.0 H (14-18) Glucose 142 H (74-106) mg/dL Calcium 8.2 L (8.5-10.1) mg/dL Total Bilirubin 0.4 (0.2-1.0) mg/dL AST 43 H (15-37) U/L ALT 30 (14-59) U/L Alkaline Phosphatase 39 L (46-116) U/L Total Protein 5.6 L (6.4-8.2) g/dl Albumin 2.7 L (3.4-5.0) g/dl Globulin 2.9 gm/dL Albumin/Globulin Ratio 0.9 L (1-2) Blood Type A POSITIVE Gel Antibody Screen Negative Med Orders - Current: Current Medications Artificial Tears (Refresh Liquigel 1%) 0 ml EYEBOTH Q2HR PRN PRN Reason: irritation Last Admin: 05/25/19 15:54 Dose: 1 drop Bisacodyl (Dulcolax) 5 mg PO DAILY PRN PRN Reason: Constipation Cyclobenzaprine HCl (Flexeril) 10 mg PO TID PRN PRN Reason: Spasms Last Admin: 05/26/19 03:57 Dose: 10 mg Docusate Sodium (Colace) 100 mg PO BID [facility] Last Admin: 05/25/19 20:30 Dose: 100 mg Famotidine (Pepcid) 20 mg PO Q12H [facility] Last Admin: 05/25/19 20:30 Dose: 20 mg Cefazolin Sodium/Dextrose 2 gm (/ Premix) 50 mls @ 100 mls/hr IV Q8H [facility] Stop: 05/26/19 10:44 Last Admin: 05/26/19 01:32 Dose: 100 mls/hr Ketorolac Tromethamine (Toradol) 15 mg IVPUSH Q6H PRN PRN Reason: Pain Last Admin: 05/26/19 03:57 Dose: 15 mg Magnesium Hydroxide (Milk Of Magnesia) 30 ml PO BID PRN PRN Reason: Constipation Morphine Sulfate (Morphine) 2 mg IVPUSH Q2H PRN PRN Reason: Breakthrough Pain Naloxone HCl (Narcan) 0.1 mg IVPUSH Q5M PRN PRN Reason: Oversedation Ondansetron HCl (Zofran) 4 mg IVPUSH Q6H PRN PRN Reason: Nausea/Vomiting Oxycodone/Acetaminophen (Percocet 325-5 Mg) 1 - 2 tab PO Q4H PRN PRN Reason: Pain Last Admin: 05/26/19 05:23 Dose: 2 tab Rivaroxaban (Xarelto) 10 mg PO DAILY [facility] Senna (Senna) 8.6 mg PO BID PRN PRN Reason: Constipation Sodium Chloride (Saline Flush) 10 ml FLUSH ASDIRECTED PRN PRN Reason: Keep Vein Open Discontinued Medications Acetaminophen (Tylenol) 975 mg PO NOW GUS Stop: 05/25/19 11:00 Last Admin: 05/25/19 09:45 Dose: 975 mg Bupivacaine HCl (Sensorcaine-Mpf 0.25%) Confirm Administered Dose 30 ml .ROUTE .STK-MED ONE Stop: 05/25/19 10:15 Last Admin: 05/25/19 13:34 Dose: 4 ml Bupivacaine HCl (Sensorcaine-Mpf 0.25%) Confirm Administered Dose 10 ml .ROUTE .STK-MED ONE Stop: 05/25/19 10:15 Last Admin: 05/25/19 13:02 Dose: 30 ml Cefazolin Sodium (Ancef) Confirm Administered Dose 2 gm .ROUTE .STK-MED ONE Stop: 05/25/19 08:15 Last Admin: 05/25/19 12:56 Dose: 2 gm Cefazolin Sodium (Ancef) Confirm Administered Dose 2 gm .ROUTE .STK-MED ONE Stop: 05/25/19 10:15 Morphine Sulfate 8 mg/Epinephrine HCl 0.3 mg/Cefuroxime Sodium 750 mg/Ketorolac Tromethamine 30 mg/Sodium Chloride 27.9 ml 0 mg .XX ONETIME ONE Stop: 05/25/19 10:01 Last Admin: 05/25/19 18:50 Dose: Not Given Dexamethasone (Dexamethasone) Confirm Administered Dose 20 mg .ROUTE .STK-MED ONE Stop: 05/25/19 12:00 Diphenhydramine HCl (Benadryl) 25 mg IVPUSH Q6H PRN PRN Reason: itching Stop: 05/25/19 16:00 Fentanyl (Sublimaze) Confirm Administered Dose 100 mcg .ROUTE .STK-MED ONE Stop: 05/25/19 08:15 Fentanyl (Sublimaze) 50 mcg IVPUSH Q5M PRN PRN Reason: pain Stop: 05/25/19 16:00 Hydromorphone HCl (Dilaudid) 0.5 mg IVPUSH Q15M PRN PRN Reason: Pain (severe 7-10) Stop: 05/25/19 16:00 Lactated Ringer's (Ringers, Lactated) 1,000 mls @ 125 mls/hr IV ASDIRECTED [facility] Last Admin: 05/25/19 10:00 Dose: 125 mls/hr Lactated Ringer's (Ringers, Lactated) Confirm Administered Dose 1,000 mls @ as directed .ROUTE .STK-MED ONE Stop: 05/25/19 13:01 Lactated Ringer's (Ringers, Lactated) Confirm Administered Dose 1,000 mls @ as directed .ROUTE .STK-MED ONE Stop: 05/25/19 13:28 Iodine (Iodine 2% Mild Tincture) Confirm Administered Dose 30 ml .ROUTE .STK- MED ONE Stop: 05/25/19 10:15 Last Admin: 05/25/19 12:53 Dose: 18 ml Ketorolac Tromethamine (Toradol) Confirm Administered Dose 30 mg .ROUTE .STK- MED ONE Stop: 05/25/19 12:00 Lidocaine/Sodium Bicarbonate (Buffered Lidocaine 1% In Ns 8.4%) 0.25 ml IDERM ONETIME PRN PRN Reason: Prior to IV Start Stop: 05/25/19 16:00 Last Admin: 05/25/19 10:36 Dose: 0.25 ml Midazolam HCl (Versed 1 Mg/Ml) Confirm Administered Dose 2 mg .ROUTE .STK-MED ONE Stop: 05/25/19 08:15 Ondansetron HCl (Zofran) Confirm Administered Dose 4 mg .ROUTE .STK-MED ONE Stop: 05/25/19 12:00 Ondansetron HCl (Zofran) 4 mg IVPUSH ONETIME PRN PRN Reason: Nausea/Vomiting Stop: 05/25/19 16:00 Oxycodone HCl (Oxycontin) 10 mg PO ONETIME [facility] Stop: 05/25/19 11:00 Last Admin: 05/25/19 09:45 Dose: 10 mg Phenylephrine HCl (Phenylephrine In Ns 100 Mcg/Ml) Confirm Administered Dose 1 mg .ROUTE .STK-MED ONE Stop: 05/25/19 11:41 Pregabalin (Lyrica) 50 mg PO ONETIME [facility] Stop: 05/25/19 11:00 Last Admin: 05/25/19 09:45 Dose: 50 mg Propofol (Diprivan 20 Ml) Confirm Administered Dose 600 mg .ROUTE .STK-MED ONE Stop: 05/25/19 08:15 Propofol (Diprivan 20 Ml) Confirm Administered Dose 200 mg .ROUTE .STK-MED ONE Stop: 05/25/19 12:29 Propofol (Diprivan 20 Ml) Confirm Administered Dose 200 mg .ROUTE .STK-MED ONE Stop: 05/25/19 13:04 Scopolamine (Transderm-Scop) 0 mg TRDERM ONETIME GUS Stop: 05/25/19 14:00 Last Admin: 05/25/19 09:46 Dose: 1.5 mg Tranexamic Acid (Cyklokapron) Confirm Administered Dose 1,000 mg .ROUTE .STK- MED ONE Stop: 05/25/19 10:14 Last Admin: 05/25/19 13:03 Dose: 1,000 mg Triamcinolone Acetonide (Kenalog-40) Confirm Administered Dose 80 mg .ROUTE .STK -MED ONE Stop: 05/25/19 10:14 Last Admin: 05/25/19 13:34 Dose: 80 mg Vancomycin HCl (Vancomycin) Confirm Administered Dose 1 gm .ROUTE .STK-MED ONE Stop: 05/25/19 10:14 Last Admin: 05/25/19 13:02 Dose: 1 gm - Exam Wound/Incisions: Dressing Dry and Intact, Other (Eccymosis at right thigh noted. ) General: Alert, Cooperative, No Acute Distress Lungs: Normal Respiratory Effort Extremities: Other (NVS intact for BLE. Coy's negative. Right thigh soft, nontender.) - Problem List Review Problem List Initiated/Reviewed/Updated: Yes - My Orders Last 24 Hours: Active Orders 24 hr Category Date Time Status Cooling Warming Measures [RC] ASDIRECTED Care 05/25/19 13:52 Active Notify Provider [RC] ASDIRECTED Care 05/25/19 13:52 Active Pulse Oximetry [RC] ASDIRECTED Care 05/25/19 13:52 Active Ready for Discharge [RC] PER UNIT ROUTINE Care 05/26/19 08:01 Ordered Regular Diet [DIET] Diet 05/25/19 Lunch Active Carboxymethylcellulose Sodium [Refresh Liquigel 1%] Med 05/25/19 15:09 Active 0 ml EYEBOTH Q2HR PRN Docusate Sodium [Colace] Med 05/25/19 21:00 Active 100 mg PO BID Famotidine [Pepcid] Med 05/25/19 21:00 Active 20 mg PO Q12H Ketorolac [Toradol] Med 05/25/19 14:00 Active 15 mg IVPUSH Q6H PRN Rivaroxaban [Xarelto] Med 05/26/19 09:00 Active 10 mg PO DAILY ceFAZolin [Ancef] 2 gm Med 05/25/19 18:15 Active Premix Bag 1 bag IV Q8H Medication Orders Artificial Tears (Refresh Liquigel 1%) 0 ml EYEBOTH Q2HR PRN PRN Reason: irritation Last Admin: 05/25/19 15:54 Dose: 1 drop Bisacodyl (Dulcolax) 5 mg PO DAILY PRN PRN Reason: Constipation Cyclobenzaprine HCl (Flexeril) 10 mg PO TID PRN PRN Reason: Spasms Last Admin: 05/26/19 03:57 Dose: 10 mg Docusate Sodium (Colace) 100 mg PO BID [facility] Last Admin: 05/25/19 20:30 Dose: 100 mg Famotidine (Pepcid) 20 mg PO Q12H [facility] Last Admin: 05/25/19 20:30 Dose: 20 mg Cefazolin Sodium/Dextrose 2 gm (/ Premix) 50 mls @ 100 mls/hr IV Q8H [facility] Stop: 05/26/19 10:44 Last Admin: 05/26/19 01:32 Dose: 100 mls/hr Infusion: 05/25/19 17:59 Dose: 100 mls/hr Admin: 05/25/19 17:29 Dose: 100 mls/hr Ketorolac Tromethamine (Toradol) 15 mg IVPUSH Q6H PRN PRN Reason: Pain Last Admin: 05/26/19 03:57 Dose: 15 mg Magnesium Hydroxide (Milk Of Magnesia) 30 ml PO BID PRN PRN Reason: Constipation Morphine Sulfate (Morphine) 2 mg IVPUSH Q2H PRN PRN Reason: Breakthrough Pain Naloxone HCl (Narcan) 0.1 mg IVPUSH Q5M PRN PRN Reason: Oversedation Ondansetron HCl (Zofran) 4 mg IVPUSH Q6H PRN PRN Reason: Nausea/Vomiting Oxycodone/Acetaminophen (Percocet 325-5 Mg) 1 - 2 tab PO Q4H PRN PRN Reason: Pain Last Admin: 05/26/19 05:23 Dose: 2 tab Admin: 05/26/19 01:34 Dose: 2 tab Admin: 05/25/19 21:38 Dose: 2 tab Admin: 05/25/19 17:30 Dose: 2 tab Rivaroxaban (Xarelto) 10 mg PO DAILY [facility] Senna (Senna) 8.6 mg PO BID PRN PRN Reason: Constipation Sodium Chloride (Saline Flush) 10 ml FLUSH ASDIRECTED PRN PRN Reason: Keep Vein Open - Assessment Assessment (Free Text/Narrative):: POD#1 - right SITA - Plan Plan (Free Text/Narrative):: 1. Hgb 9.1. 2. Xarelto, TEDs, frequent mobility. 3. SITA precautions. WBAT RLE. 4. Discharge to home today. The pt's case was discussed with Dr. Sparks.
[2019-05-26] MEDS: Docusate Sodium 100 MG Cap PO SCH (08:21)
[2019-05-26] MEDS: Famotidine 20 MG Tab PO SCH (08:22)
[2019-05-26] MEDS ORDERED: Rivaroxaban 10 MG Tab PO SCH (09:00)
--- NOTE | 2019-05-26 09:57 | PCM.CONSN ---
- General Info Date of Service: 05/26/19 Admission Dx/Problem (Free Text): Admission Diagnosis/Problem Admission Diagnosis/Problem Osteoarthritis of hip Subjective Update: patient is without any complaints. She denies any chest pain, palpitations, shortness of breath, or abdominal pain. Functional Status: Reports: Pain Controlled - Review of Systems General: Reports: No Symptoms HEENT: Reports: No Symptoms Cardiovascular: Reports: No Symptoms Gastrointestinal: Reports: No Symptoms - Patient Data Vitals - Most Recent: Last Vital Signs Temp 97.7 F 05/26/19 07:59 Pulse 79 05/26/19 07:59 Resp 18 05/26/19 07:59 BP 115/61 05/26/19 07:59 Pulse Ox 92 L 05/26/19 07:59 Weight - Most Recent: 217 lb 9.6 oz I&O - Last 24 Hours: Intake & Output 05/25/19 05/26/19 05/26/19 22:59 06:59 14:59 Intake Total 740 1600 Output Total 1325 Balance 740 275 Lab Results Last 24 Hours: Laboratory Results - last 24 hr 05/25/19 05/26/19 05/26/19 Range/Units 10:05 05:40 05:40 WBC 10.58 H (3.98-10.04) K/mm3 RBC 3.01 L (3.98-5.22) M/mm3 Hgb 9.1 L D (11.2-15.7) gm/L Hct 27.9 L (34.1-44.9) % MCV 92.7 (79.4-94.8) fl MCH 30.2 (25.6-32.2) pg MCHC 32.6 (32.2-35.5) g/dl RDW Std Deviation 39.1 (36.4-46.3) fL Plt Count 208 D (182-369) K/mm3 MPV 8.9 L (9.4-12.3) fl Sodium 136 (136-145) mEq/L Potassium 3.9 (3.5-5.1) mEq/L Chloride 102 (98-107) mEq/L Carbon Dioxide 24 (21-32) mEq/L Anion Gap 13.9 (5-15) BUN 14 (7-18) mg/dL Creatinine 0.7 (0.55-1.02) mg/dL Est Cr Clr Drug Dosing 86.72 mL/min Estimated GFR (MDRD) > 60 (>60) mL/min BUN/Creatinine Ratio 20.0 H (14-18) Glucose 142 H (74-106) mg/dL Calcium 8.2 L (8.5-10.1) mg/dL Total Bilirubin 0.4 (0.2-1.0) mg/dL AST 43 H (15-37) U/L ALT 30 (14-59) U/L Alkaline Phosphatase 39 L (46-116) U/L Total Protein 5.6 L (6.4-8.2) g/dl Albumin 2.7 L (3.4-5.0) g/dl Globulin 2.9 gm/dL Albumin/Globulin Ratio 0.9 L (1-2) Blood Type A POSITIVE Gel Antibody Screen Negative Med Orders - Current: Current Medications Artificial Tears (Refresh Liquigel 1%) 0 ml EYEBOTH Q2HR PRN PRN Reason: irritation Last Admin: 05/25/19 15:54 Dose: 1 drop Bisacodyl (Dulcolax) 5 mg PO DAILY PRN PRN Reason: Constipation Cyclobenzaprine HCl (Flexeril) 10 mg PO TID PRN PRN Reason: Spasms Last Admin: 05/26/19 08:21 Dose: 10 mg Docusate Sodium (Colace) 100 mg PO BID [facility] Last Admin: 05/26/19 08:21 Dose: 100 mg Famotidine (Pepcid) 20 mg PO Q12H [facility] Last Admin: 05/26/19 08:22 Dose: 20 mg Cefazolin Sodium/Dextrose 2 gm (/ Premix) 50 mls @ 100 mls/hr IV Q8H [facility] Stop: 05/26/19 10:44 Last Admin: 05/26/19 09:35 Dose: 100 mls/hr Ketorolac Tromethamine (Toradol) 15 mg IVPUSH Q6H PRN PRN Reason: Pain Last Admin: 05/26/19 03:57 Dose: 15 mg Magnesium Hydroxide (Milk Of Magnesia) 30 ml PO BID PRN PRN Reason: Constipation Morphine Sulfate (Morphine) 2 mg IVPUSH Q2H PRN PRN Reason: Breakthrough Pain Naloxone HCl (Narcan) 0.1 mg IVPUSH Q5M PRN PRN Reason: Oversedation Ondansetron HCl (Zofran) 4 mg IVPUSH Q6H PRN PRN Reason: Nausea/Vomiting Oxycodone/Acetaminophen (Percocet 325-5 Mg) 1 - 2 tab PO Q4H PRN PRN Reason: Pain Last Admin: 05/26/19 05:23 Dose: 2 tab Rivaroxaban (Xarelto) 10 mg PO DAILY [facility] Last Admin: 05/26/19 08:21 Dose: 10 mg Senna (Senna) 8.6 mg PO BID PRN PRN Reason: Constipation Sodium Chloride (Saline Flush) 10 ml FLUSH ASDIRECTED PRN PRN Reason: Keep Vein Open Discontinued Medications Acetaminophen (Tylenol) 975 mg PO NOW [facility] Stop: 05/25/19 11:00 Last Admin: 05/25/19 09:45 Dose: 975 mg Bupivacaine HCl (Sensorcaine-Mpf 0.25%) Confirm Administered Dose 30 ml .ROUTE .STK-MED ONE Stop: 05/25/19 10:15 Last Admin: 05/25/19 13:34 Dose: 4 ml Bupivacaine HCl (Sensorcaine-Mpf 0.25%) Confirm Administered Dose 10 ml .ROUTE .STK-MED ONE Stop: 05/25/19 10:15 Last Admin: 05/25/19 13:02 Dose: 30 ml Cefazolin Sodium (Ancef) Confirm Administered Dose 2 gm .ROUTE .STK-MED ONE Stop: 05/25/19 08:15 Last Admin: 05/25/19 12:56 Dose: 2 gm Cefazolin Sodium (Ancef) Confirm Administered Dose 2 gm .ROUTE .STK-MED ONE Stop: 05/25/19 10:15 Morphine Sulfate 8 mg/Epinephrine HCl 0.3 mg/Cefuroxime Sodium 750 mg/Ketorolac Tromethamine 30 mg/Sodium Chloride 27.9 ml 0 mg .XX ONETIME ONE Stop: 05/25/19 10:01 Last Admin: 05/25/19 18:50 Dose: Not Given Dexamethasone (Dexamethasone) Confirm Administered Dose 20 mg .ROUTE .STK-MED ONE Stop: 05/25/19 12:00 Diphenhydramine HCl (Benadryl) 25 mg IVPUSH Q6H PRN PRN Reason: itching Stop: 05/25/19 16:00 Fentanyl (Sublimaze) Confirm Administered Dose 100 mcg .ROUTE .STK-MED ONE Stop: 05/25/19 08:15 Fentanyl (Sublimaze) 50 mcg IVPUSH Q5M PRN PRN Reason: pain Stop: 05/25/19 16:00 Hydromorphone HCl (Dilaudid) 0.5 mg IVPUSH Q15M PRN PRN Reason: Pain (severe 7-10) Stop: 05/25/19 16:00 Lactated Ringer's (Ringers, Lactated) 1,000 mls @ 125 mls/hr IV ASDIRECTED [facility] Last Admin: 05/25/19 10:00 Dose: 125 mls/hr Lactated Ringer's (Ringers, Lactated) Confirm Administered Dose 1,000 mls @ as directed .ROUTE .STK-MED ONE Stop: 05/25/19 13:01 Lactated Ringer's (Ringers, Lactated) Confirm Administered Dose 1,000 mls @ as directed .ROUTE .STK-MED ONE Stop: 05/25/19 13:28 Iodine (Iodine 2% Mild Tincture) Confirm Administered Dose 30 ml .ROUTE .STK- MED ONE Stop: 05/25/19 10:15 Last Admin: 05/25/19 12:53 Dose: 18 ml Ketorolac Tromethamine (Toradol) Confirm Administered Dose 30 mg .ROUTE .STK- MED ONE Stop: 05/25/19 12:00 Lidocaine/Sodium Bicarbonate (Buffered Lidocaine 1% In Ns 8.4%) 0.25 ml IDERM ONETIME PRN PRN Reason: Prior to IV Start Stop: 05/25/19 16:00 Last Admin: 05/25/19 10:36 Dose: 0.25 ml Midazolam HCl (Versed 1 Mg/Ml) Confirm Administered Dose 2 mg .ROUTE .STK-MED ONE Stop: 05/25/19 08:15 Ondansetron HCl (Zofran) Confirm Administered Dose 4 mg .ROUTE .STK-MED ONE Stop: 05/25/19 12:00 Ondansetron HCl (Zofran) 4 mg IVPUSH ONETIME PRN PRN Reason: Nausea/Vomiting Stop: 05/25/19 16:00 Oxycodone HCl (Oxycontin) 10 mg PO ONETIME [facility] Stop: 05/25/19 11:00 Last Admin: 05/25/19 09:45 Dose: 10 mg Phenylephrine HCl (Phenylephrine In Ns 100 Mcg/Ml) Confirm Administered Dose 1 mg .ROUTE .STK-MED ONE Stop: 05/25/19 11:41 Pregabalin (Lyrica) 50 mg PO ONETIME [facility] Stop: 05/25/19 11:00 Last Admin: 05/25/19 09:45 Dose: 50 mg Propofol (Diprivan 20 Ml) Confirm Administered Dose 600 mg .ROUTE .STK-MED ONE Stop: 05/25/19 08:15 Propofol (Diprivan 20 Ml) Confirm Administered Dose 200 mg .ROUTE .STK-MED ONE Stop: 05/25/19 12:29 Propofol (Diprivan 20 Ml) Confirm Administered Dose 200 mg .ROUTE .STK-MED ONE Stop: 05/25/19 13:04 Scopolamine (Transderm-Scop) 0 mg TRDERM ONETIME [facility] Stop: 05/25/19 14:00 Last Admin: 05/25/19 09:46 Dose: 1.5 mg Tranexamic Acid (Cyklokapron) Confirm Administered Dose 1,000 mg .ROUTE .STK- MED ONE Stop: 05/25/19 10:14 Last Admin: 05/25/19 13:03 Dose: 1,000 mg Triamcinolone Acetonide (Kenalog-40) Confirm Administered Dose 80 mg .ROUTE .STK -MED ONE Stop: 05/25/19 10:14 Last Admin: 05/25/19 13:34 Dose: 80 mg Vancomycin HCl (Vancomycin) Confirm Administered Dose 1 gm .ROUTE .STK-MED ONE Stop: 05/25/19 10:14 Last Admin: 05/25/19 13:02 Dose: 1 gm - Exam Quality Assessment: No: Supplemental Oxygen General: Alert, Oriented HEENT: Pupils Equal, Mucous Membr. Moist/Story Neck: Supple Lungs: Clear to Auscultation, Normal Respiratory Effort Cardiovascular: Regular Rate, Regular Rhythm GI/Abdominal Exam: Normal Bowel Sounds, Soft, Non-Tender, No Distention Extremities: Normal Inspection, Normal Range of Motion, Non-Tender, No Pedal Edema Skin: Warm, Dry, Intact Neurological: No New Focal Deficit Psy/Mental Status: Alert, Normal Affect, Normal Mood Consult PN Assessment/Plan Procedures: Procedures ANTINUCLEAR ANTIBODIES (10/11/16) ASSAY OF FREE THYROXINE (05/07/19) ASSAY OF PREALBUMIN (05/07/19) ASSAY THYROID STIM HORMONE (05/07/19) C-REACTIVE PROTEIN (10/10/16) CCP ANTIBODY (10/11/16) COMPLETE CBC AUTOMATED (05/07/19) COMPREHEN METABOLIC PANEL (05/07/19) CULTURE SCREEN ONLY (12/13/15) DRAIN/INJ JOINT/BURSA W/O US (04/10/19) LIPID PANEL (10/18/17) MANUAL THERAPY 1/> REGIONS (11/11/18) MEDICAL NUTRITION INDIV IN (03/20/17) MRI JNT OF LWR EXTRE W/O DYE (02/25/17) NEUROMUSCULAR REEDUCATION (12/04/18) PROTHROMBIN TIME (05/07/19) PT EVAL LOW COMPLEX 20 MIN (10/16/18) RBC SED RATE AUTOMATED (10/10/16) RHEUMATOID FACTOR TEST QUAL (10/11/16) ROUTINE VENIPUNCTURE (05/07/19) STREP A AG IA (12/13/15) THERAPEUTIC EXERCISES (12/04/18) THROMBOPLASTIN TIME PARTIAL (05/07/19) ULTRASOUND BREAST LIMITED (10/30/16) URINALYSIS AUTO W/O SCOPE (10/18/17) URINALYSIS AUTO W/SCOPE (05/07/19) X-RAY EXAM CHEST 2 VIEWS (09/23/18) X-RAY EXAM HIP UNI 2-3 VIEWS (12/13/15) X-RAY EXAM L-S SPINE 2/3 VWS (12/13/15) X-RAY EXAM SACRUM TAILBONE (12/13/15) Problem List Initiated/Reviewed/Updated: Yes My Orders Last 24 Hours: My Active Orders 05/25/19 15:09 Carboxymethylcellulose Sodium [Refresh Liquigel 1%] 0 ml EYEBOTH Q2HR PRN Plan: Assessment * 48-year-old with rheumatoid arthritis status post right total hip arthroplasty and right knee steroid injection * Orthopedics surgery requesting medical management Plan * Patient is to continue off of her plaque Gilma until discharge. * Primary care team to treat pain and VTE prophylaxis * Thank you for allowing us to follow this patient with you. * patient is ready for discharge per medical team.
[2019-05-26 12:02] VITALS: BP 110/60; PULSE 63
[2019-05-26] MEDS ORDERED: Venlafaxine 75 MG Cap.ER PO SCH (12:15)
--- NOTE | 2019-05-28 14:15 | PCM.DCSUM1 ---
Discharge Summary - Hospital Course Brief History: Beatriz is a 48 yo female who underwent right SITA with right knee cortisone injection with Dr. Sparks on 05-25-2019. The procedure was completed under spinal anesthesia with MAC. The pt tolerated the procedure well and was admitted to the Medical-Surgical Unit. The pt received Ancef mary jane-operatively. She participated in P.T. and O.T. and progressed well. She was allowed to WBAT and used a FWW for mobility. The pt's surgical wound was dressed with a Mepilex dressing and remained clean and dry. On POD#1, the pt was started on Xarelto 10mg PO daily for VTE prophylaxis. The pt used TEDs and SCDs also. On POD#1, the pt's hemoglobin was 9.1. Medical management was provided by the Hospitalist service and the pt's hospital course was uneventful. On POD#1, the pt was deemed appropriate for discharge to home with her family. - Discharge Data Discharge Date: 05/26/19 Discharge Disposition: Home, Self-Care 01 Condition: Good - Referral to Home Health Primary Care Physician: Linda Long PT - Patient Summary/Data Consults: Consultations 05/25/19 06:43 OT Evaluation and Treatment [CONS] Routine PT Evaluation and Treatment [CONS] Routine 05/25/19 06:45 Consult to Physician [CONS] Routine - Patient Instructions Diet: Usual Diet as Tolerated Activity: Apply Ice, As Tolerated, Elevate Extremity Activity, Other: Follow the total hip precautions. Driving: Do Not Drive Showering/Bathing: May Shower Wound/Incision Care: Keep Operative Site/Wound Site Clean and Dry, Do NOT Change Dressing Notify Provider of: Fever, Increased Pain, Swelling and Redness, Drainage, Nausea and/or Vomiting Other/Special Instructions: The patient received her pain medication, muscle relaxant and Xarelto at her pre-op visit. Please get up and moving around EVERY HOUR while awake. This helps to prevent blood clots. Please use your walker and have help with mobility as needed. Take a short walk in your home every hour while awake. Please use the Xarelto blood thinner medication daily as directed. At home, please complete the exercises that you learned during the Hospital stay. Schedule for physical therapy. Use the pain medication as needed. The medication may cause drowsiness and constipation. Contact your primary care provider for instructions if you are constipated. You may use a stool softener like docusate sodium or Colace 100mg twice daily and/or a laxative like Miralax daily for constipation. Increase your water and fiber intake while you are using the pain medication. Discontinue use of the pain medication as soon as able. Please do not use other medications that may cause drowsiness (other pain medications, anxiety pills, cold medications, sleeping pills, etc) while using the prescription pain medication. Do not use alcohol while using the pain medication. You may use acetaminophen or Tylenol for pain management, however, please ensure you are not using over 4000 mg or 4 grams of acetaminophen per day from all sources. Your pain medication has 325mg of acetaminophen per tablet. Please place ice to the area often. Please place a towel between your skin and the blue pad. Use the incentive spirometer often. Take deep breaths throughout the day. Please keep the dressing in place until follow-up. Notify the Clinic if the dressing becomes saturated. Increase your protein intake while you are healing. Call the Clinic with questions or concerns - [phone]. - Discharge Plan *PRESCRIPTION DRUG MONITORING PROGRAM REVIEWED*: No *COPY OF PRESCRIPTION DRUG MONITORING REPORT IN PATIENT ELENA: No Home Medications: Home Meds Amoxicillin 2,000 mg PO ASDIRECTED 05/22/19 [History] Cholecalciferol (Vitamin D3) [Vitamin D3] 5,000 unit PO DAILY 05/22/19 [History] Diclofenac Sodium [Voltaren 1% Gel] 1 dose .ROUTE ASDIRECTED 05/22/19 [History] Hydroxychloroquine Sulfate [Plaquenil] 200 mg PO BID 05/22/19 [History] Loratadine [Claritin] 10 mg PO DAILY 05/22/19 [History] Metaxalone 800 mg PO DAILY 05/22/19 [History] Multivitamin [Daily Multiple Vitamin] 1 tab PO DAILY 05/22/19 [History] valACYclovir [Valtrex] 1 gm PO DAILY PRN 05/22/19 [History] Acetaminophen/oxyCODONE [Percocet 325-5 MG] 1 - 2 tab PO Q4H PRN #0 tablet 05/25 [Rx] Bisacodyl [Dulcolax] 5 mg PO DAILY PRN tablet 05/25/19 [Rx] Carboxymethylcellulose Sodium [Refresh Liquigel 1%] 0 ml EYEBOTH Q2HR PRN bottle 05/25/19 [Rx] Docusate Sodium [Colace] 100 mg PO BID cap 05/25/19 [Rx] Famotidine [Pepcid] 20 mg PO Q12H tablet 05/25/19 [Rx] Magnesium Hydroxide [Milk of Magnesia] 30 ml PO BID PRN cup 05/25/19 [Rx] Rivaroxaban [Xarelto] 10 mg PO DAILY tablet 05/25/19 [Rx] Sennosides [Senna] 8.6 mg PO BID PRN tablet 05/25/19 [Rx] Venlafaxine HCl [Venlafaxine ER] 75 mg PO DAILY 05/26/19 [History] Referrals: Lyn Hogan PA-C [Physician Quitline Counselor] - (Please follow-up with ILIANA Velasquez on June 02 at 10:00, June 09 at 10:00, July 07 at 10:00.) - Discharge Summary/Plan Comment DC Time >30 min.: No - Patient Data Vitals - Most Recent: Last Vital Signs Temp 98.6 F 05/26/19 11:54 Pulse 63 05/26/19 11:54 Resp 16 05/26/19 11:54 BP 110/60 05/26/19 11:54 Pulse Ox 100 05/26/19 11:54 Weight - Most Recent: 217 lb 9.6 oz Med Orders - Current: Current Medications Discontinued Medications Acetaminophen (Tylenol) 975 mg PO NOW [facility] Stop: 05/25/19 11:00 Last Admin: 05/25/19 09:45 Dose: 975 mg Artificial Tears (Refresh Liquigel 1%) 0 ml EYEBOTH Q2HR PRN PRN Reason: irritation Last Admin: 05/25/19 15:54 Dose: 1 drop Bisacodyl (Dulcolax) 5 mg PO DAILY PRN PRN Reason: Constipation Bupivacaine HCl (Sensorcaine-Mpf 0.25%) Confirm Administered Dose 30 ml .ROUTE .STK-MED ONE Stop: 05/25/19 10:15 Last Admin: 05/25/19 13:34 Dose: 4 ml Bupivacaine HCl (Sensorcaine-Mpf 0.25%) Confirm Administered Dose 10 ml .ROUTE .STK-MED ONE Stop: 05/25/19 10:15 Last Admin: 05/25/19 13:02 Dose: 30 ml Cefazolin Sodium (Ancef) Confirm Administered Dose 2 gm .ROUTE .STK-MED ONE Stop: 05/25/19 08:15 Last Admin: 05/25/19 12:56 Dose: 2 gm Cefazolin Sodium (Ancef) Confirm Administered Dose 2 gm .ROUTE .STK-MED ONE Stop: 05/25/19 10:15 Morphine Sulfate 8 mg/Epinephrine HCl 0.3 mg/Cefuroxime Sodium 750 mg/Ketorolac Tromethamine 30 mg/Sodium Chloride 27.9 ml 0 mg .XX ONETIME ONE Stop: 05/25/19 10:01 Last Admin: 05/25/19 18:50 Dose: Not Given Cyclobenzaprine HCl (Flexeril) 10 mg PO TID PRN PRN Reason: Spasms Last Admin: 05/26/19 11:50 Dose: 10 mg Dexamethasone (Dexamethasone) Confirm Administered Dose 20 mg .ROUTE .ST-MED ONE Stop: 05/25/19 12:00 Diphenhydramine HCl (Benadryl) 25 mg IVPUSH Q6H PRN PRN Reason: itching Stop: 05/25/19 16:00 Docusate Sodium (Colace) 100 mg PO BID [facility] Last Admin: 05/26/19 08:21 Dose: 100 mg Famotidine (Pepcid) 20 mg PO Q12H [facility] Last Admin: 05/26/19 08:22 Dose: 20 mg Fentanyl (Sublimaze) Confirm Administered Dose 100 mcg .ROUTE .STK-MED ONE Stop: 05/25/19 08:15 Fentanyl (Sublimaze) 50 mcg IVPUSH Q5M PRN PRN Reason: pain Stop: 05/25/19 16:00 Hydromorphone HCl (Dilaudid) 0.5 mg IVPUSH Q15M PRN PRN Reason: Pain (severe 7-10) Stop: 05/25/19 16:00 Lactated Ringer's (Ringers, Lactated) 1,000 mls @ 125 mls/hr IV ASDIRECTED [facility] Last Admin: 05/25/19 10:00 Dose: 125 mls/hr Cefazolin Sodium/Dextrose 2 gm (/ Premix) 50 mls @ 100 mls/hr IV Q8H [facility] Stop: 05/26/19 10:44 Last Admin: 05/26/19 09:35 Dose: 100 mls/hr Lactated Ringer's (Ringers, Lactated) Confirm Administered Dose 1,000 mls @ as directed .ROUTE .STK-MED ONE Stop: 05/25/19 13:01 Lactated Ringer's (Ringers, Lactated) Confirm Administered Dose 1,000 mls @ as directed .ROUTE .STK-MED ONE Stop: 05/25/19 13:28 Iodine (Iodine 2% Mild Tincture) Confirm Administered Dose 30 ml .ROUTE .STK- MED ONE Stop: 05/25/19 10:15 Last Admin: 05/25/19 12:53 Dose: 18 ml Ketorolac Tromethamine (Toradol) 15 mg IVPUSH Q6H PRN PRN Reason: Pain Last Admin: 05/26/19 12:32 Dose: 15 mg Ketorolac Tromethamine (Toradol) Confirm Administered Dose 30 mg .ROUTE .STK- MED ONE Stop: 05/25/19 12:00 Lidocaine/Sodium Bicarbonate (Buffered Lidocaine 1% In Ns 8.4%) 0.25 ml IDERM ONETIME PRN PRN Reason: Prior to IV Start Stop: 05/25/19 16:00 Last Admin: 05/25/19 10:36 Dose: 0.25 ml Magnesium Hydroxide (Milk Of Magnesia) 30 ml PO BID PRN PRN Reason: Constipation Midazolam HCl (Versed 1 Mg/Ml) Confirm Administered Dose 2 mg .ROUTE .STK-MED ONE Stop: 05/25/19 08:15 Morphine Sulfate (Morphine) 2 mg IVPUSH Q2H PRN PRN Reason: Breakthrough Pain Naloxone HCl (Narcan) 0.1 mg IVPUSH Q5M PRN PRN Reason: Oversedation Ondansetron HCl (Zofran) 4 mg IVPUSH Q6H PRN PRN Reason: Nausea/Vomiting Ondansetron HCl (Zofran) Confirm Administered Dose 4 mg .ROUTE .STK-MED ONE Stop: 05/25/19 12:00 Ondansetron HCl (Zofran) 4 mg IVPUSH ONETIME PRN PRN Reason: Nausea/Vomiting Stop: 05/25/19 16:00 Oxycodone HCl (Oxycontin) 10 mg PO ONETIME [facility] Stop: 05/25/19 11:00 Last Admin: 05/25/19 09:45 Dose: 10 mg Oxycodone/Acetaminophen (Percocet 325-5 Mg) 1 - 2 tab PO Q4H PRN PRN Reason: Pain Last Admin: 05/26/19 14:24 Dose: 2 tab Phenylephrine HCl (Phenylephrine In Ns 100 Mcg/Ml) Confirm Administered Dose 1 mg .ROUTE .STK-MED ONE Stop: 05/25/19 11:41 Pregabalin (Lyrica) 50 mg PO ONETIME [facility] Stop: 05/25/19 11:00 Last Admin: 05/25/19 09:45 Dose: 50 mg Propofol (Diprivan 20 Ml) Confirm Administered Dose 600 mg .ROUTE .STK-MED ONE Stop: 05/25/19 08:15 Propofol (Diprivan 20 Ml) Confirm Administered Dose 200 mg .ROUTE .STK-MED ONE Stop: 05/25/19 12:29 Propofol (Diprivan 20 Ml) Confirm Administered Dose 200 mg .ROUTE .STK-MED ONE Stop: 05/25/19 13:04 Rivaroxaban (Xarelto) 10 mg PO DAILY [facility] Last Admin: 05/26/19 08:21 Dose: 10 mg Scopolamine (Transderm-Scop) 0 mg TRDERM ONETIME [facility] Stop: 05/25/19 14:00 Last Admin: 05/25/19 09:46 Dose: 1.5 mg Senna (Senna) 8.6 mg PO BID PRN PRN Reason: Constipation Sodium Chloride (Saline Flush) 10 ml FLUSH ASDIRECTED PRN PRN Reason: Keep Vein Open Tranexamic Acid (Cyklokapron) Confirm Administered Dose 1,000 mg .ROUTE .STK- MED ONE Stop: 05/25/19 10:14 Last Admin: 05/25/19 13:03 Dose: 1,000 mg Triamcinolone Acetonide (Kenalog-40) Confirm Administered Dose 80 mg .ROUTE .STK -MED ONE Stop: 05/25/19 10:14 Last Admin: 05/25/19 13:34 Dose: 80 mg Vancomycin HCl (Vancomycin) Confirm Administered Dose 1 gm .ROUTE .STK-MED ONE Stop: 05/25/19 10:14 Last Admin: 05/25/19 13:02 Dose: 1 gm Venlafaxine HCl (Effexor Xr) 75 mg PO DAILY [facility] Last Admin: 05/26/19 12:29 Dose: 75 mg
--- NOTE | 2019-05-29 11:55 | PCM.OPNOTE ---
- General Post-Op/Procedure Note Date of Surgery/Procedure: 05/25/19 Operative Procedure(s): right total hip arthroplasty with right knee corticosteroid injection Pre Op Diagnosis: right hip osteoarthrosis and right knee osteoarthrosis Post-Op Diagnosis: Same Anesthesia Technique: Local, MAC, Spinal Primary Surgeon: Ye Sparks Anesthesia Provider: Nava Guaman Stone Spreader Operator: Lyn Hogan Stone Spreader Operator: Bertha Navarro EBL in mLs: 250 Complications: None Condition: Good Free Text/Narrative:: size 2 stem 54mm cup -2.7 28mm head MDM
--- NOTE | 2019-05-29 12:47 | OR ---
DATE OF OPERATION: 05/25/2019 SURGEON: Ye Sparks MD OPERATION PERFORMED: Right total hip arthroplasty with right knee corticosteroid injection. PREOPERATIVE DIAGNOSIS: 1. Right hip osteoarthritis. 2. Right knee osteoarthrosis. POSTOPERATIVE DIAGNOSIS: 1. Right hip osteoarthritis. 2. Right knee osteoarthrosis. ANESTHESIA: Local MAC with spinal. ANESTHESIA PROVIDER: Nava Guaman. ASSISTANTS: 1. Lyn Hogan PA-C. 2. Bertha Navarro LPN. ESTIMATED BLOOD LOSS: 250 mL. COMPLICATIONS: None. CONDITION: Stable. IMPLANTS: 1. Vy size 2 Accolade stem. 2. Vy size 54 mm Tritanium II acetabular cup. 3. Vy size -2.7, 28 mm head for a 28/48 MDM components. DESCRIPTION OF PROCEDURE: The patient was identified in the preoperative holding area. Proper site was marked and identified by the surgeon. The patient was taken back to the operative theater where after adequate anesthesia, the patient was placed in a left lateral decubitus position. All bony prominences were well padded. Axillary roll was placed. Pegs were then placed and well padded. The patient's gluteal fold was parallel to the floor. Right hip was then sterilely prepped and draped in the usual sterile fashion. OR time-out was performed. The patient received 2 g IV Ancef. At this time, standard posterior incision was made. This was taken down to the IT band and gluteal fascia, which was incised along the incisional length. Charnley retractor was then placed. Short external rotators were identified and takedown of the short external rotators was done from the level of the piriformis down to the lesser trochanter. The hip was then dislocated and neck cut was then completed and found to be adequate. Anterior and posterior acetabular retractors were then placed and resection of remaining labrum as well as pulvinar was done at this time. Starting with a 48 reamer, I was able to ream up to a 54, which was found to have adequate purchase with a good bony bleeding bed. At this time, a 54 mm Tritanium II acetabular cup was impacted in place in roughly 45 degrees of abduction and 20 to 30 degrees of anteversion. The MDM liner was then impacted in place. Attention was turned to the femur. Starter awl was placed down the canal and starting with the 0 broach, I was able to broach up to a size 2, which was found to be rotationally and vertically stable. I trialed MDM components at this time with proper neck length. First 0, was found to be a minor amount long, so we did a -2.7 and it was found to have adequate congregational of leg lengths and was stable throughout range of motion. At this time, the size 2 Accolade II stem was impacted into place. The MDM components were constructed on the back table and then were impacted on the Accolade II stem. Hip was then relocated, was found to be stable throughout range of motion. A #5 Ethibond suture was used for closure of the short external rotators and capsule. 1 L dilute Betadine solution was irrigated through the hip along with 3 L pulse lavage irrigation with Ancef. Topical tranexamic acid as well as vancomycin powder were then done and a joint injection was completed. #2 barbed suture was used for closure of the IT band and gluteal fascia, 2-0 Vicryl was used subcutaneously, and Prineo was used for the skin. The patient had a sterile soft dressing applied. After this was completed under sterile technique, 2 mL of 40 mg Kenalog and 4 mL of 0.25% Marcaine were injected in the right knee as well. The patient tolerated both procedures well and was sent to PACU in stable condition. MIKE /[id number]
== END 2019-05-26 15:00 | disposition home or self-care (01) | DRG 301 ==
LOC: JD.MS 09:01
PROVIDERS: ADMIT Orthopaedic Surgery; ATTEND Orthopaedic Surgery
PROC: 0SR90JZ Replacement of Right Hip Joint with Synthetic Substitute, Open Approach (ICD-10-PCS; principal; 2019-05-25)
PROC: 3E0U33Z Introduction of Anti-inflammatory into Joints, Percutaneous Approach (ICD-10-PCS; 2019-05-25)
PROC: 3E0U3BZ Introduction of Anesthetic Agent into Joints, Percutaneous Approach (ICD-10-PCS; 2019-05-25)
DX: M16.11 Unilateral primary osteoarthritis, right hip (principal); F41.9 Anxiety disorder, unspecified; F32.9 Major depressive disorder, single episode, unspecified; M25.552 Pain in left hip; G89.29 Other chronic pain; E03.9 Hypothyroidism, unspecified; Z96.642 Presence of left artificial hip joint; E66.3 Overweight; M06.9 Rheumatoid arthritis, unspecified; H54.7 Unspecified visual loss; M79.7 Fibromyalgia; Z79.2 Long term (current) use of antibiotics; Z79.899 Other long term (current) drug therapy; Z79.01 Long term (current) use of anticoagulants; Z87.42 Personal history of other diseases of the female genital tract; Z90.49 Acquired absence of other specified parts of digestive tract; Z90.710 Acquired absence of both cervix and uterus; Z91.048 Other nonmedicinal substance allergy status; Z68.37 Body mass index [BMI] 37.0-37.9, adult
CPT/HCPCS: 01214; 36415; 73501-26-RT; 73501-RT; 80053; 85027; 86850; 86900; 86901; 87641; 97110-GP; 97116-GP; 97161-GP; 97165-GO; 97535-GO; A9270-GY; C1776; J0171; J0690; J0697; J1100; J1885; J2250; J2270; J2370; J2405; J2704; J3010; J3301; J3370; J3490; J7120

== ENCOUNTER 2021-06-12 11:08 | Day surgery (SDC) | payer BC ==
--- NOTE | 2021-06-12 11:07 | PCM.PREANE ---
Preanesthetic Assessment - Anesthesia/Transfusion/Family Hx Anesthesia History: Prior Anesthesia Reaction Other Type of Anesthesia Reaction Comment: "stiffness" Family History of Anesthesia Reaction: No Transfusion History: No Prior Transfusion(s) - Review of Systems General: Fatigue, Other (BMI 41) Pulmonary: Shortness of Breath, Other Cardiovascular: No Symptoms, Other (stopped BP meds on 05/06/21, BPs stable) Gastrointestinal: No Symptoms Neurological: No Symptoms Other: Reports: Thyroid Problems, Depression, Anxiety - Physical Assessment NPO Status Date: 06/12/21 NPO Status Time: 02:30 (water) Weight: 103 kg ASA Class: 3 Mental Status: Alert & Oriented x3 Airway Class: Mallampati = 2 Dentition: Reports: Normal Dentition Thyro-Mental Finger Breadths: 3 Mouth Opening Finger Breadths: 3 ROM/Head Extension: Full Lungs: Clear to Auscultation, Normal Respiratory Effort Cardiovascular: Regular Rate, Regular Rhythm - Imaging/EKG Impressions: EKG sr at 68 - Allergies Allergies/Adverse Reactions: Allergies Allergy/AdvReac Type Severity Reaction Status Date / Time cat dander Allergy Itching Verified 05/22/19 15:26 - Blood Blood Available: No Product(s) Available: None - Anesthesia Plan Pre-Op Medication Ordered: None - Acknowledgements Anesthesia Type Planned: Spinal Pt an Appropriate Candidate for the Planned Anesthesia: Yes Alternatives and Risks of Anesthesia Discussed w Pt/Guardian: Yes Pt/Guardian Understands and Agrees with Anesthesia Plan: Yes PreAnesthesia Questionnaire HEENT History: Reports: Allergic Rhinitis, Impaired Vision Other HEENT History: Patient wears eye glasses. Cardiovascular History: Reports: Heart Murmur, High Cholesterol Respiratory History: Reports: Sleep Apnea Other Respiratory History: Patient reports having had sleep apnea, but has lost about 100lbs and it has resolved. Did not require a CPAP. 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 History: Reports: , Therapeutic Musculoskeletal History: Reports: Fibromyalgia, RA, Other (See Below) Other Musculoskeletal History: chronic left hip pain, fibromyalgia, polyarthritis Neurological History: Reports: Vertigo, Other (See Below) Other Neuro History: brain fog, left sided acoustic neuroma, menangioma, neck pain Psychiatric History: Reports: Anxiety, Depression Endocrine/Metabolic History: Reports: Hypothyroidism, Obesity/BMI 30+, Other (See Below) Other Endocrine/Metabolic History: Goiter Hematologic History: Reports: Anemia Immunologic History: Reports: None Oncologic (Cancer) History: Reports: None Dermatologic History: Reports: Other (See Below) Other Dermatologic History: Skin tags - Infectious Disease History Infectious Disease History: Reports: Herpes Other Infectious Disease History: [place] Nile - Past Surgical History Head Surgeries/Procedures: Reports: None HEENT Surgical History: Reports: Oral Surgery Cardiovascular Surgical History: Reports: None Respiratory Surgical History: Reports: None Other Respiratory Surgeries/Procedures: hx of obstructive sleep apnea GI Surgical History: Reports: Appendectomy Female Surgical History: Reports: Hysterectomy Other Endocrine Surgeries/Procedures: Patient denies obesity at this time after weight loss as well as having thyroid problems. Neurological Surgical History: Reports: None Musculoskeletal Surgical History: Reports: Hip Replacement, Joint Replacement Other Musculoskeletal Surgeries/Procedures:: Left Hip Replacement 10-06-2018 Oncologic Surgical History: Reports: None - SUBSTANCE USE Tobacco Use Status *Q: Never Tobacco User Recreational Drug Use History: No - HOME MEDS Home Medications: Home Meds Cholecalciferol (Vitamin D3) [Vitamin D3] 10,000 unit PO DAILY 05/22/19 [History] Hydroxychloroquine Sulfate [Plaquenil] 200 mg PO DAILY 05/22/19 [History] Loratadine [Claritin] 10 mg PO DAILY 05/22/19 [History] valACYclovir [Valtrex] 1 gm PO DAILY PRN 05/22/19 [History] Venlafaxine HCl [Venlafaxine ER] 75 mg PO DAILY 05/26/19 [History] Fluticasone Propionate [Flovent] 50 mcg IH DAILY 12/16/20 [History] Acetaminophen [Tylenol Arthritis] 1,300 mg PO BID 06/09/21 [History] L. Acidophilus/L. Rhamnosus [Florajen Women 15 B Cell Cap] 1 cap PO DAILY 06/09/21 [History] Lovastatin [Altoprev] 20 mg PO DAILY 06/09/21 [History] Multivitamin 1 tab PO DAILY 06/09/21 [History] Potassium Gluconate [Potassium] 99 mg PO DAILY 06/09/21 [History] Metaxalone 800 mg PO BID PRN #30 06/12/21 [Rx] Ondansetron [Zofran] 4 mg PO Q6H PRN #20 tab 06/12/21 [Rx] Rivaroxaban [Xarelto] 10 mg PO DAILY #30 tab 06/12/21 [Rx] oxyCODONE 5 - 10 mg PO Q4H PRN #40 tab 06/12/21 [Rx] - CURRENT (IN HOUSE) MEDS Current Meds: Current Medications Acetaminophen (Acetaminophen 325 Mg Tab) 975 mg PO ONETIME GUS Stop: 06/12/21 14:00 Morphine Sulfate 8 mg/Epinephrine HCl 0.3 mg/Cefuroxime Sodium 750 mg/Ketorolac Tromethamine 30 mg/Sodium Chloride 7.9 ml 0 mg .XX ASDIRECTED PRN PRN Reason: Pain Stop: 06/12/21 16:00 Lactated Ringer's (Ringers, Lactated) 1,000 mls @ 125 mls/hr IV ASDIRECTED GUS Stop: 06/12/21 23:00 Lidocaine/Sodium Bicarbonate (Lidocaine 1%/Sod Bicarbonate In Ns 8.4% 1 Ml Syringe) 0.25 ml IDERM ONETIME PRN PRN Reason: Prior to IV Start Stop: 06/12/21 18:00 Ondansetron HCl (Ondansetron 4 Mg Tab.Dis) 4 mg PO ONETIME PRN PRN Reason: post op nausea Stop: 06/12/21 16:00 Oxycodone HCl (Oxycodone Er 10 Mg Tab.Er) 10 mg PO ONETIME GUS Stop: 06/12/21 14:00 Oxycodone HCl (Oxycodone 5 Mg Tab) 5 - 10 mg PO ONETIME PRN PRN Reason: post op pain Stop: 06/12/21 16:00 Pregabalin (Pregabalin 25 Mg Cap) 50 mg PO ONETIME GUS Stop: 06/12/21 14:00 Sodium Chloride (Sodium Chloride 0.9% 10 Ml Syringe) 10 ml FLUSH ASDIRECTED PRN PRN Reason: Keep Vein Open Stop: 06/12/21 18:00 Discontinued Medications Cefazolin Sodium (Cefazolin 1 Gm Vial) Confirm Administered Dose 2 gm .ROUTE . [facility]-MED ONE Stop: 06/12/21 09:29 Epinephrine HCl (Epinephrine 1 Mg/Ml Sdv) Confirm Administered Dose 1 mg .ROUTE .STK-MED ONE Stop: 06/12/21 07:23 Fentanyl (Fentanyl 100 Mcg/2 Ml Sdv) Confirm Administered Dose 100 mcg .ROUTE .[facility]-MED ONE Stop: 06/12/21 09:30 Lactated Ringer's (Ringers, Lactated) Confirm Administered Dose 1,000 mls @ as directed .ROUTE .[facility]-MED ONE Stop: 06/12/21 09:29 Midazolam HCl (Midazolam 1 Mg/Ml 2 Ml Sdv) Confirm Administered Dose 2 mg .ROUTE .[facility]-MED ONE Stop: 06/12/21 09:30 Propofol (Propofol 200 Mg/20 Ml Sdv) Confirm Administered Dose 600 mg .ROUTE .[facility]-MED ONE Stop: 06/12/21 09:30 Ropivacaine (Ropivacaine 0.5% 5 Mg/Ml 30 Ml Sdv) Confirm Administered Dose 30 ml .ROUTE .[facility]-MED ONE Stop: 06/12/21 07:23
[~2021-06-12 11:08] MED LIST changes: +Acetaminophen 325 MG Tab PO SCH; -Bisacodyl 5 MG Tab PO PRN; +EPINEPHrine 1 MG/ML SDV ONE; +Lactated Ringers 1,000 ML ONE; -Magnesium Hydroxide 400 MG/5 ML Susp 30 ML Cup PO PRN; -Morphine 2 MG/ML Syringe IVPUSH PRN; +Morphine 8 MG, EPINEPHrine 0.3 MG, Cefuroxime 750 MG, Ketorolac 30 MG, Sodium Chloride ... PRN; -Naloxone 0.4 MG/ML SDV IVPUSH PRN; +Ondansetron 4 MG Tab.DIS PO PRN; -Ondansetron 4 MG/2 ML SDV IVPUSH PRN; +Pregabalin 25 MG Cap PO SCH; +Ropivacaine 0.5% 5 MG/ML 30 ML SDV ONE; -Scopolamine 1.5 MG Transdermal Patch TRDERM SCH; -Sennosides 8.6 MG Tab PO PRN; +oxyCODONE 5 MG Tab PO PRN; +oxyCODONE ER 10 MG TAB.ER PO SCH
[2021-06-12] MEDS ORDERED: Scopolamine 1.5 MG Transdermal Patch TRDERM ONE (12:00)
[2021-06-12] MEDS ORDERED: Vancomycin 1 GM SDV ONE (12:20)
[2021-06-12] MEDS ORDERED: Dexamethasone 4 MG/ML 5 ML MDV ONE (13:31)
[2021-06-12] MEDS ORDERED: Ondansetron 4 MG/2 ML SDV ONE (13:31)
[2021-06-12] MEDS ORDERED: HYDROmorphone 0.5 MG/0.5 ML Syringe ONE (14:07)
[2021-06-12] MEDS ORDERED: fentaNYL 100 MCG/2 ML SDV ONE (14:16)
[2021-06-12] MEDS ORDERED: HYDROmorphone 0.5 MG/0.5 ML Syringe IVPUSH PRN (14:39)
[2021-06-12] MEDS ORDERED: Ondansetron 4 MG/2 ML SDV IVPUSH PRN (14:39)
[2021-06-12] MEDS ORDERED: fentaNYL 100 MCG/2 ML SDV IVPUSH PRN (14:39)
[2021-06-12] MEDS ORDERED: Lactated Ringers 1,000 ML ONE (14:48)
[2021-06-12] MEDS ORDERED: Ketorolac 30 MG/ML SDV ONE (14:58)
--- NOTE | 2021-06-12 15:05 | PCM.POSTAN ---
POST ANESTHESIA ASSESSMENT - MENTAL STATUS Mental Status: Alert, Oriented - VITAL SIGNS Vital Signs: Last Vital Signs Temp 36.3 C 06/12/21 11:15 Pulse 75 06/12/21 11:15 Resp 18 06/12/21 11:15 BP 111/79 06/12/21 11:15 Pulse Ox 96 06/12/21 11:15 - RESPIRATORY Respiratory Status: Respiratory Rate WNL, Airway Patent, O2 Saturation Stable, Supplemental Oxygen - CARDIOVASCULAR CV Status: Pulse Rate WNL, Blood Pressure Stable - GASTROINTESTINAL GI Status: No Symptoms - PAIN Pain Score: 6 (iv pain meds and block) - POST OP HYDRATION Hydration Status: Adequate & Stable
--- NOTE | 2021-06-12 15:36 | PCM.SN.2 ---
- Free Text/Narrative Note: Right selective femoral nerve block at the adductor canal for post-procedure pain control under US guidance requested by Dr. Sparks. Time Out: 1507 Start: 1507 End: 151 Chart reviewed. Consent signed. Questions answered. Appropriate monitors applied. Time out performed. Right mid-shaft femur identified with ultrasound, scanning medially of femur, the femoral artery in the adductor canal visualized, and the femoral nerve located laterally to the artery. The skin was prepped lateral to the ultrasound probe with chlorahexadine times two. The 21ga 4 insulated block needle was inserted under direct ultrasound guidance into the adductor canal. 30mL of 0.5% ropivacaine with 1:200,000 epinephrine was injected circumferentially around the nerve with intermittent negative aspiration noted. Patient tolerated the procedure well. Sterile technique noted along with sterile gloves, mask, and sterile probe cover. See picture on progress note and vital signs on nurses notes. Block completed in PACU. Thank you, Celeste Robledo CRNA Time Documentation
--- NOTE | 2021-06-12 15:38 | PCM48HPAN ---
Post Anesthesia Note - EVALUATION WITHIN 48HRS OF ANESTHETIC Vital Signs in Normal Range: Yes Patient Participated in Evaluation: Yes Respiratory Function Stable: Yes Airway Patent: Yes Cardiovascular Function Stable: Yes Hydration Status Stable: Yes Pain Control Satisfactory: No (Adductor canal block placed and IV pain meds being administered.) Nausea and Vomiting Control Satisfactory: Yes Mental Status Recovered: Yes Vital Signs: Last Vital Signs Temp 37.0 C 06/12/21 15:30 Pulse 75 06/12/21 11:15 Resp 14 06/12/21 15:30 BP 133/74 06/12/21 15:30 Pulse Ox 95 06/12/21 15:30
[2021-06-12] MEDS ORDERED: Midazolam 1 MG/ML 2 ML SDV ONE (15:46)
[2021-06-12] MEDS ORDERED: Ketamine 500 mg/10 ML MDV ONE (15:46)
--- NOTE | 2021-06-12 16:00 | CR ---
Right knee: AP and crosstable lateral views of the right knee were obtained. Comparison: Prior CT right knee study of 06/02/21. Knee prosthesis is noted. Patellar prosthesis is seen. Components are aligned. Underlying bony structures show nothing else acute. Soft tissue air is seen. Impression: 1. Nothing acute is identified on 2 view postoperative study of the right knee. Diagnostic code #2
[2021-06-12 16:51] VITALS: BP 123/72; PULSE 91
--- NOTE | 2021-06-27 07:01 | PCM.OPNOTE ---
- General Post-Op/Procedure Note Operative Procedure(s): right total knee arthroplasty with [employer] robot[employer] Pre Op Diagnosis: right knee osteoarthrosis Post-Op Diagnosis: Same Anesthesia Technique: Local, MAC, Spinal Primary Surgeon: Ye Sparks Anesthesia Provider: Nava Guaman Knitting Machine Operator Automatic: Lyn Hogan Knitting Machine Operator Automatic: Bertha Navarro EBBailee in mLs: 150 Complications: None Condition: Good Free Text/Narrative:: 12/17 9 29x9
--- NOTE | 2021-06-27 12:02 | OR ---
DATE OF OPERATION: 06/12/2021 SURGEON: Ye Sparks MD OPERATION PERFORMED: Right total knee arthroplasty with [employer] robot[employer]. PREOPERATIVE DIAGNOSIS: Right knee osteoarthrosis. POSTOPERATIVE DIAGNOSIS: Right knee osteoarthrosis. ANESTHESIA: Local MAC with spinal. ANESTHESIA PROVIDER: Nava Guaman. ASSISTANTS: Lyn Hogan PA-C and Bertha Navarro LPN. ESTIMATED BLOOD LOSS: 150 mL. COMPLICATIONS: None. CONDITION: Stable. IMPLANTS: 1. Vy size 4 press-fit CR femur. 2. [place] size 3 press-fit tibial baseplate. 3. Vy size 3, 9 mm CS polyethylene insert. 4. Vy size 29 x 9 mm press-fit asymmetric patella. DESCRIPTION OF PROCEDURE: The patient was identified in the preoperative holding area. Proper site was marked and identified by the surgeon. The patient was taken back to the operating room, where after adequate anesthesia, a nonsterile tourniquet was applied to the right lower extremity. Right lower extremity was then sterilely prepped and draped in the usual sterile fashion. OR time-out was performed. The patient received 2 g IV Ancef. Right lower extremity had a leg lara applied and then was exsanguinated. Tourniquet was insufflated to 250 mmHg. Standard anterior incision was made. Medial parapatellar arthrotomy was created. Deep fibers of the MCL were raised and anterior fat pad was resected. Attention was turned to the patella. Patella measured a 21, resected to a 13 for a 29 x 9 mm patella. Drill holes were then drilled. Attention was turned to femur. Two 4.0 Schanz pins were then placed intra-incisionally in the femur, two more were placed on the tibia 3 fingerbreadths below the tibial tubercle. Checkpoints were placed on the femur and the tibia. Hip center rotation was obtained. Medial and lateral malleoli were marked as well as the checkpoints were marked with a green probe. At this time, 40 points were obtained off both the femur and the tibia for the [employer] robotic plan. The patient's knee was brought into full extension as well as 90 degrees of flexion and varus valgus stresses were applied. The [employer] robotic plan for this patient was then undertaken for symmetric flexion and extension gaps. Straight saw blade was brought in with [employer] robotic arm. Tibial cut as well as anterior femoral cut, anterior chamfer cut, and posterior femoral cut were completed. Saw blade was then switched and the distal femoral cut as well as posterior chamfer cut was completed. All bony fragments were removed. Medial and lateral menisci were resected. Any posterior osteophytes were removed. Attention was turned to the tibia. Size 3 trial tibial baseplate was placed, size 4 trial femur was placed, and a 9 mm trial spacer. The patient had full knee flexion and extension. No signs of liftoff on the femur and patella was tracking centrally. At this time, drill holes were drilled in the femur. Tibia was stamped and drilled in the proper rotation and all trial implants were removed. Size 3 tibial baseplate was impacted into place. Size 4 press-fit femur was impacted into place. 9 mm CS polyethylene insert was placed. The patient's knee was brought into full extension. The 29 x 9 mm press-fit patella was press- fit into place. Tourniquet was deflated. Bleeders were cauterized. 1 L pulse lavage irrigation with Ancef was irrigated through the knee along with 400 mL of Irrisept irrigation. Topical tranexamic acid and vancomycin powder were applied. Check points as well as all femur pins and arrays were removed. #2 barbed suture was used for closure of the medial parapatellar arthrotomy. 2-0 Vicryl and Stratafix were used for subcutaneous closure and Prineo was used for skin closure and 3-0 nylon was used for the 2 poke holes in the tibia for the [employer] robotic ray. Sterile soft dressing was applied. The patient was sent to PACU in stable condition. MMODAL /[id number]
== END 2021-06-12 19:25 | disposition home or self-care (01) ==
LOC: JD.SDS 11:08 → JD.MS 17:17 → JD.SDS 19:25
PROVIDERS: ATTEND Orthopaedic Surgery
DX: M17.11 Unilateral primary osteoarthritis, right knee (principal); I10 Essential (primary) hypertension; M06.9 Rheumatoid arthritis, unspecified; G47.30 Sleep apnea, unspecified; G89.18 Other acute postprocedural pain; E78.00 Pure hypercholesterolemia, unspecified; Z79.899 Other long term (current) drug therapy; Z90.49 Acquired absence of other specified parts of digestive tract; Z98.890 Other specified postprocedural states
CPT/HCPCS: 27447; 73560; 94762; 97110; 97116; 97161; A9270; C1713; C1776; J0171; J0690; J1100; J1170; J1885; J2250; J2370; J2405; J2704; J2795; J3010; J3370; J7120; 01402; 64450; 76942

== ENCOUNTER 2024-06-09 06:45 | Day surgery (SDC) | payer BC ==
[~2024-06-09 06:45] MED LIST changes: -Acetaminophen 325 MG Tab PO SCH; -EPINEPHrine 1 MG/ML SDV ONE; -Lactated Ringers 1,000 ML IV SCH; -Lactated Ringers 1,000 ML ONE; -Lidocaine 1%/Sod Bicarbonate in NS 8.4% 1 ML Syringe IDERM PRN; -Midazolam 1 MG/ML 2 ML SDV ONE; -Morphine 8 MG, EPINEPHrine 0.3 MG, Cefuroxime 750 MG, Ketorolac 30 MG, Sodium Chloride ... PRN; -Ondansetron 4 MG Tab.DIS PO PRN; -Pregabalin 25 MG Cap PO SCH; -Propofol 200 MG/20 ML SDV ONE; -Ropivacaine 0.5% 5 MG/ML 30 ML SDV ONE; -ceFAZolin 1 GM Vial ONE; -fentaNYL 100 MCG/2 ML SDV ONE; -oxyCODONE 5 MG Tab PO PRN; -oxyCODONE ER 10 MG TAB.ER PO SCH
[2024-06-09] MEDS: Lactated Ringers 1,000 ML IV SCH (07:00)
[2024-06-09] MEDS ORDERED: Lidocaine 2% 5 ML SDV ONE (07:15)
[2024-06-09] MEDS ORDERED: Propofol 200 MG/20 ML SDV ONE ×4 (07:16)
[2024-06-09] MEDS ORDERED: Sodium Chloride 0.9% 10 ML Syringe FLUSH SCH (09:00)
[2024-06-09 09:22] VITALS: BP 124/82; PULSE 70
== END 2024-06-09 09:15 | disposition home or self-care (01) ==
LOC: JD.SDS 06:45
PROVIDERS: ATTEND Surgery
DX: Z12.11 Encounter for screening for malignant neoplasm of colon (principal); K29.50 Unspecified chronic gastritis without bleeding; B96.81 Helicobacter pylori [H. pylori] as the cause of diseases classified elsewhere; I10 Essential (primary) hypertension; K21.9 Gastro-esophageal reflux disease without esophagitis; F32.A Depression, unspecified; E66.9 Obesity, unspecified; Z79.899 Other long term (current) drug therapy
CPT/HCPCS: 43239; 45378; J2704; J3490; J7120; 00813